=== PATIENT | male | born 1950 | race Caucasian/White ===

== ENCOUNTER → 2017-02-16 | Day surgery (SDC) | payer OTHER ==
[2017-02-06 10:59] VITALS: Ht 180.3 cm; Wt 86.5 kg
[~2017-02-16] VITALS: Ht 180.3 cm; Wt 86.5 kg
[~2017-02-16] MED LIST: ACETAMINOPHEN 325 MG TAB PO PRN; ACT30 PO; ASPI81TA28 PO; ATROPINE SULFATE 0.1 MG/ML 5ML SYR IV PRN; ATROPINE SULFATE 1% OP SOLN 2 ML BTL ONE; AcetylCHOLine CHL OP SOL 1:100 2 ML BTL ONE; BRIMONIDINE TART 0.2% OP SOLN PER DROP CHARGE ONE; BSS 500ML IRRIG ONE; BSS FLUSH ONE; CARB50TA3 PO; ENDOCOAT 0.85ML SYRINGE INT OCU ONE; EpHEDrine SULFATE INJ 50 MG/ML AMP IV PRN; EpINEphrine INJ 1MG/ML AMP 1 MG/ML AMP ONE; FENTANYL CITRATE INJ 50 MCG/1 ML 2 ML VIAL ONE; FLUO0.1S2 OPR; GLUC10007 PO; HEALON 10MG/ML 0.85 ML SYR INSTIL ONE; INSU1.2I SQ; LACTATED RINGER'S 1000ML 500 ML IV SCH; LIDOCAINE 3.5% OPH GEL PER APPLICATION CHARGE ONE; LIDOCAINE 3.5% OPH GEL PER APPLICATION CHARGE OPL SCH; LIDOCAINE 4% OP SOLN DROP CHARGE ONE; LIDOCAINE 4% OP SOLN DROP CHARGE OPL SCH; LIDOCAINE HCL 1% MPF 2 ML VIAL ONE; LISI-725 PO; MIDAZOLAM HCL 1 MG/ML 2ML VIAL ONE; MOXIFLOXACIN OPH SOLN PER DROP CHARGE ONE; POVIDONE-IODINE OP SOLN 30 ML BTL ONE; PRLSR20 PO; PROPARACAINE 0.5% OP SOLN PER DROP CHARGE OPL SCH; SIMV40TA2 PO; SITA50TA5 PO; TETRACAINE HCL (OPHTH) 60 DROPS/4 ML BTL OP ONE; TOBRAMYCIN/DEXAMETHASONE OPH OINT PER APPLN CHARGE ONE
[2017-02-16] MEDS: MOXIFLOXACIN OPH SOLN PER DROP CHARGE OPL SCH ×3 (10:53→11:13)
--- NOTE | 2017-02-16 11:10 | History & Physical Bridge - SC ---
H&P Re-Evaluation Bridge Note: I have examined the patient, reviewed the History & Physical and in the interval since the performance of the History & Physical I have noted the following changes of clinical significance: No changes noted
[2017-02-16 13:00] VITALS: TEMP 36.5
--- NOTE | 2017-02-16 13:02 | Discharge Instructions-SurgCtr ---
Discharge Instructions Date of Service Feb 16, 2017. 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 meds - did not take any insulin this a.m.. Activity Recommendations Activity Limitations: per Instructions/Follow-up section Lifting Limitations: none Anesthesia . Post Anesthesia Instructions: If you have had General Anesthesia or IV Sedation: * Do not drive today. * Resume driving when surgeon permits. * Do not make important decisions or sign legal documents today. * Call surgeon for: 1. Temperature elevations greater than 101 degrees F. 2. Uncontrollable pain. 3. Excessive bleeding. 4. Persistent nausea and vomiting. 5. Medication intolerance (nausea, vomiting or rash). * For nausea and vomiting use only clear liquids such as: tea, soda, bouillon until nausea subsides, then gradually increase diet as tolerated. * If you have any concerns or questions, call your surgeon's office. If physician is unavailable and it is an emergency, call 911 or go to the nearest emergency room. . Instructions / Follow-Up Instructions / Follow-Up ACTIVITY RECOMMENDATIONS: * Bedrest (eyes to the sheila) MEDICATIONS: Resume previous medications unless instructed otherwise by your surgeon. Eye drops (today and tomorrow): Cipro - one drop in operative eye every 2 hours while awake Prednisolone 1% - one drop in operative eye every 2 hours while awake SPECIAL CARE INSTRUCTIONS: * If any problems or concerns, please call Dr. Fox's office at . * Keep plastic shield taped over eye to sleep at night. * Keep plastic shield taped over eye except to administer eye drops. * Keep plastic shield on until office visit the following day. FOLLOW UP VISIT: Follow-up with Dr. Fox in the [place] office as scheduled. If not already scheduled, please call the office at . Diet Recommendations Home Diet: resume previous diet Procedures Procedures Performed: Left Eye Descements Stripping Automated Endothelial Keratoplasty Pending Studies Studies pending at discharge: yes List of pending studies: corneal donor rim culture Medical Emergencies . Who to Call and When: Medical Emergencies: If at any time you feel your situation is an emergency, please call 911 immediately. . Non-Emergent Contact Non-Emergency issues call your: Finished Cloth Examiner . . "Provider Documentation" section prepared by Kingston Fox. .
--- NOTE | 2017-02-16 13:11 | [facility] Operative Report ---
Operative Report Operative Date Feb 16, 2017. Pre-Operative Diagnosis Left Eye Fuchs Dystrophy and Corneal Edema Post-Operative Diagnosis Same Procedure(s) Performed Left Eye Descements Stripping Automated Endothelial Keratoplasty Surgeon Dr. Fox Tank Assembler Surgeon(s) None Estimated Blood Loss 0 Findings fuchs dystrophy/ corneal edema left eye Fluids (cc crystalloids) see anesthesia record Specimens 1. C&S Corneal Donor Rim Drains none Anesthesia local with sedation Complication(s) None Disposition Recovery Room / PACU Implants DSAEK Graft Indications decreased vision left eye Description of Procedure After informed consent was obtained in the holding area attention was first turned to the donor cornea. It was trephinated with an 8.5mm Johanne trephine by myself. The patient was then wheeled back to the operating room where cardiac monitoring leads and oxygen by nasal cannula was administered by Anesthesia. Gentle IV sedation was given, and the patient's left eye was prepped and draped in usual sterile fashion. A wire lid speculum was placed into the left eye and the operating microscope was swung into position. Using 0.12 forceps and a Supersharp blade a paracentesis port was made 3 o'clock hours away from the 3 o'clock position of the patient's left eye. 1% non-preserved Lidocaine was then injected into the anterior chamber for anesthesia. The previously used trephine was then inked and used to josé the anterior corneal surface. A 2.2 mm keratotome blade was then used to make a shelved clear corneal incision at the 3o'clock position of the left eye. Healon was injected into the anterior chamber and a reverse Sinsky hook was used to score Descemet's membrane within the marked area. The stripper was then used to remove the stripped Descemets'. The stromal utility tender carding was then used to roughen the peripheral stromal bed. The primary incision was then widened to 4.0m total. The irrigation and aspiration handpiece was then used to remove the Healon. The donor graft was then loaded into the Endoserter and the graft was injected into the anterior chamber using the Endoserter. The graft was unfolded underneath bss and air and a single 10- 0 nylon suture was placed through the primary incision. A complete air fill of the anterior was achieved and the cornea was covered in Healon for 15 minutes. The interface was then milked with a Lesley Lasik roller and another 15 minutes was allowed to elaps. A partial air-fluid exchange was done leaving behind a 50% air fill. Resure sealant was placed over the incisions. The wounds were hydrated and noted to be watertight. The wire lid speculum was removed from the eye. Vigamox, Atropine, and TobraDex ointment were placed on the eye and it was shielded. DISPOSITION: The patient tolerated the procedure well and was wheeled to the post anesthesia care unit in stable condition. I attest to the content of the Intraoperative Record and any orders documented therein. Any exceptions are noted below. I attest to the content of the Intraoperative Record and any orders documented therein. Any exceptions are noted below.
--- NOTE | 2017-02-16 13:39 | Anesthesia Progress Nt - [facility] ---
Anesthesia Post Op Note Date & Time Feb 16, 2017 at 13:39 Vital Signs Pain Intensity: 0 Vital Signs Past 12 Hours Date Time Temp Pulse Resp B/P (MAP) Pulse Ox O2 Delivery O2 Flow Rate FiO2 02/16/17 13:00 36.5 75 16 144/79 (100) 97 Room Air 02/16/17 10:33 36.7 70 16 155/86 (109) 98 Room Air Notes Mental Status: alert / awake / arousable, participated in evaluation Pt Amnestic to Procedure: Yes Nausea / Vomiting: adequately controlled Pain: adequately controlled Airway Patency, RR, SpO2: stable & adequate BP & HR: stable & adequate Hydration State: stable & adequate Anesthetic Complications: no major complications apparent
[2017-02-16 13:57] VITALS: BP 136/78; PULSE 76; O2SAT 95
== END | disposition home or self-care (01) ==
LOC: X.SURG 10:07
PROVIDERS: ATTEND Ophthalmology
DX: H18.51 Endothelial corneal dystrophy (principal); H18.20 Unspecified corneal edema; E11.9 Type 2 diabetes mellitus without complications; E78.00 Pure hypercholesterolemia, unspecified; Z79.82 Long term (current) use of aspirin; Z79.899 Other long term (current) drug therapy

== ENCOUNTER → 2017-02-23 | Day surgery (SDC) | payer OTHER ==
[2017-02-20 09:22] VITALS: Ht 180.3 cm; Wt 86.5 kg
[~2017-02-23] VITALS: Ht 180.3 cm; Wt 86.5 kg
[~2017-02-23] MED LIST changes: -AcetylCHOLine CHL OP SOL 1:100 2 ML BTL ONE; -BRIMONIDINE TART 0.2% OP SOLN PER DROP CHARGE ONE; -BSS 500ML IRRIG ONE; -BSS FLUSH ONE; -CARB50TA3 PO; -ENDOCOAT 0.85ML SYRINGE INT OCU ONE; -FENTANYL CITRATE INJ 50 MCG/1 ML 2 ML VIAL ONE; -HEALON 10MG/ML 0.85 ML SYR INSTIL ONE; -LIDOCAINE 3.5% OPH GEL PER APPLICATION CHARGE ONE; +ONDANSETRON INJ 2 MG/ML 2 ML VIAL IV PRN; -TETRACAINE HCL (OPHTH) 60 DROPS/4 ML BTL OP ONE
[2017-02-23] MEDS: BRIMONIDINE TART 0.2% OP SOLN PER DROP CHARGE ONE ×2 (07:21→09:50)
[2017-02-23] MEDS: MOXIFLOXACIN OPH SOLN PER DROP CHARGE OPL SCH ×3 (08:22→08:42)
[2017-02-23 09:53] VITALS: TEMP 36.2
--- NOTE | 2017-02-23 09:53 | [facility] Post Operative Brief Note ---
Immediate Operative Summary Operative Date Feb 23, 2017. Pre-Operative Diagnosis Left Eye Detached Cornea Graft Post-Operative Diagnosis Same Procedure(s) Performed Left Eye Refloatation Of Cornea Graft Surgeon Dr. Fox Bolt Maker Surgeon(s) None Estimated Blood Loss None Findings detached DSAEK graft left eye Fluids (cc crystalloids) see anesthesia record Specimens None Drains none Anesthesia local with sedation Complication(s) None Disposition Recovery Room / PACU
--- NOTE | 2017-02-23 09:53 | Discharge Instructions-SurgCtr ---
Discharge Instructions Date of Service Feb 23, 2017. Visit Reason for Visit: Left Eye Detached Cornea Graft Discharge Discharge Diagnosis / Problem: detached DSAEK Graft left eye Discharge Goals Goal(s): Improve function Activity Recommendations Activity Limitations: per Instructions/Follow-up section Lifting Limitations: none Anesthesia . Post Anesthesia Instructions: If you have had General Anesthesia or IV Sedation: * Do not drive today. * Resume driving when surgeon permits. * Do not make important decisions or sign legal documents today. * Call surgeon for: 1. Temperature elevations greater than 101 degrees F. 2. Uncontrollable pain. 3. Excessive bleeding. 4. Persistent nausea and vomiting. 5. Medication intolerance (nausea, vomiting or rash). * For nausea and vomiting use only clear liquids such as: tea, soda, bouillon until nausea subsides, then gradually increase diet as tolerated. * If you have any concerns or questions, call your surgeon's office. If physician is unavailable and it is an emergency, call 911 or go to the nearest emergency room. . Instructions / Follow-Up Instructions / Follow-Up ACTIVITY RECOMMENDATIONS: * Bedrest, eyes to the sheila MEDICATIONS: Resume previous medications unless instructed otherwise by your surgeon. Eye drops (today and tomorrow): Cipro - one drop operative eye 4 times daily Prednisolone 1% - one drop operative eye 4 times daily SPECIAL CARE INSTRUCTIONS: * If any problems or concerns, please call Dr. Fox's office at . * Keep plastic shield taped over eye to sleep at night. * Keep plastic shield taped over eye except to administer eye drops. * Keep plastic shield on until office visit the following day. FOLLOW UP VISIT: Follow-up with Dr. Fox in the [place] office as scheduled. If not already scheduled, please call the office at . Diet Recommendations Home Diet: resume previous diet Procedures Procedures Performed: Left Eye Refloatation Of Cornea Graft Pending Studies Studies pending at discharge: no Medical Emergencies . Who to Call and When: Medical Emergencies: If at any time you feel your situation is an emergency, please call 911 immediately. . Non-Emergent Contact Non-Emergency issues call your: Supervisor Sample . . "Provider Documentation" section prepared by Kingston Fox. .
--- NOTE | 2017-02-23 09:59 | Anesthesia Progress Nt - [facility] ---
Anesthesia Post Op Note Date & Time Feb 23, 2017 at 09:59 Vital Signs Pain Intensity: 4 Vital Signs Past 12 Hours Date Time Temp Pulse Resp B/P (MAP) Pulse Ox O2 Delivery O2 Flow Rate FiO2 02/23/17 09:53 36.2 72 18 135/75 (95) 97 Room Air 02/23/17 08:04 36.7 67 16 132/81 (98) 96 Room Air Notes Mental Status: alert / awake / arousable, participated in evaluation Pt Amnestic to Procedure: Yes Nausea / Vomiting: adequately controlled Pain: adequately controlled Airway Patency, RR, SpO2: stable & adequate BP & HR: stable & adequate Hydration State: stable & adequate Anesthetic Complications: no major complications apparent
[2017-02-23 11:05] VITALS: BP 147/81; PULSE 66; O2SAT 94
--- NOTE | 2017-02-24 01:02 | OPERATIVE REPORT ---
DATE OF OPERATION: 02/23/2017 PREOPERATIVE DIAGNOSIS: Detached DSAEK graft, left eye. POSTOPERATIVE DIAGNOSIS: Same. PROCEDURE PERFORMED: Refloat of DSAEK graft, left eye. COMPLICATIONS: None. ESTIMATED BLOOD LOSS: None. ANESTHESIA: Local with sedation. DESCRIPTION OF PROCEDURE: After informed consent was obtained in the holding area, the patient was wheeled back to the operating room where cardiac monitoring leads and oxygen by nasal cannula was administered by anesthesia. Gentle IV sedation was given, and the patient's left eye was prepped and draped in usual sterile fashion. A wire lid speculum was placed in the left eye and the operating microscope swung into position. Using the previously made paracentesis at the 5 o'clock position of the patient's left eye, lidocaine was injected into the anterior chamber for anesthesia. Air on a cannula was then used to inject air underneath the detached graft and refloat it to the posterior corneal surface. The graft was then positioned using reverse Sinskey hook. Air on a 30-gauge half-inch needle was then used to achieve a complete air fill of the left eye. This was held for 15 minutes after which time the interface was milked with a Lesley LASIK roller. Atropine drops were then placed on the eye. Another 10 minutes elapsed after which time a partial air-fluid exchange was done, leaving behind a 50% air fill. ReSure sealant was then placed over the paracentesis ports as well as the main incision. The wire lid speculum was removed from the eye. Vigamox and TobraDex ointment were placed on the eye and the eye was shielded. The patient tolerated the procedure well and was taken to recovery area in stable condition. I attest to the content of the Intraoperative Record and any orders documented therein. Any exception s are noted below.
== END | disposition home or self-care (01) ==
LOC: X.SURG 07:44
PROVIDERS: ATTEND Ophthalmology
DX: T85.328A Displacement of other ocular prosthetic devices, implants and grafts, initial encounter (principal); E11.9 Type 2 diabetes mellitus without complications; Z79.82 Long term (current) use of aspirin; E78.00 Pure hypercholesterolemia, unspecified; Z79.4 Long term (current) use of insulin; K21.9 Gastro-esophageal reflux disease without esophagitis; Y77.2 Prosthetic and other implants, materials and accessory ophthalmic devices associated with adverse incidents

== ENCOUNTER 2023-08-13 14:26 | Inpatient (IN) ==
[2023-08-13] MEDS ORDERED: SODIUM CHLORIDE 0.9% 500 ML IV ONE (14:53)
--- NOTE | 2023-08-13 15:05 | Emergency Department Note ---
Impression & Plan Atrial fibrillation ADMIT ED Provider Note HPI: History obtained from patient and family members at the bedside. The patient is a 73-year-old gentleman who over the past several days has been having issues with transient episodes of slurred speech and upper extremity weakness. Patient presents with several family members at the bedside. They state that the patient was complaining of some numbness in his extremities yesterday and intermittently was having slurred speech when they were trying to talk to him. Patient was assessed at the ER in [place], [place], and family states that following negative CT imaging the patient was ultimately discharged home. Patient's family states he again was having episodes of slurred speech today and therefore they brought him to the ER here for further evaluation. On arrival, the patient appears to be in no acute distress. He does not have any focal deficits. He states he had a mild headache earlier today but that is now resolved. Patient denies any chest pain or shortness of breath. He does not have any focal deficits on my evaluation. ROS: - Per HPI Differential Diagnosis: Acute ischemic stroke, hypoglycemic event, critical electrolyte abnormalities, acute kidney injury, sepsis, encephalopathy, amongst other potential pathologies. *Outpatient medications and allergy history reviewed. PE: General: Alert HEENT: Normocephalic, trachea midline Eyes: Extraocular eye movement is intact, no scleral erythema Pulmonary: Clear to auscultation bilaterally, no wheezing Cardio: Regular rate and irregular rhythm GI: Abdomen is soft to palpation : No suprapubic tenderness MSK: No evidence of trauma or malformation of the extremities, no edema Skin: No evidence of rash Neuro: Alert, no focal deficits Psychiatric: Cooperative INDEPENDENT INTERPRETATIONS: hall monitor: (As interpreted by myself): - An order was placed for continuous cardiac monitoring - Patient was noted to be in atrial fibrillation with a rate of 68 EKG: (As interpreted by myself): Rate: 71 Rhythm: Atrial fibrillation Intervals: Within normal limits ST changes: No ST elevation Time: 1451 Interventions provided in ED: -Normal saline bolus, IV magnesium Medical Decision Making: IV was established and lab work obtained, patient was placed on residential monitor. Lab work shows no leukocytosis, hemoglobin is 12.2, platelet count is within normal limits. CMP shows mild hyponatremia 135, creatinine is slightly elevated at 1.45 with unknown baseline, glucose is 204, troponin is negative x 1. TSH is within normal limits. Magnesium is low at 1.2. Viral panel testing was obtained and is negative. Given that the patient had recent negative CT imaging done just yesterday at an outside hospital, MRI was obtained today of the brain that does not show any evidence of acute ischemic stroke. Patient's EKG does show evidence of a new onset atrial fibrillation of which the patient states he has no known history. Family also states this. Given the patient's recent symptoms in the setting of new onset atrial fibrillation, I feel he would benefit from admission and cardiology consultation. Patient will also likely need to start anticoagulation. Patient and his family at the bedside are in agreement for admission, case was discussed with the on-call hospitalist, Dr. Bryant, and the patient was placed for admission in stable condition Consultants/Discussions held with other healthcare providers: -Hospitalist, Dr. Bryant Disposition discussion held by myself with: -Patient and at bedside Diagnosis: 1. Atrial fibrillation, acute, new onset 2. Paresthesias, acute, nonspecific 3. Speech abnormality, acute, nonspecific 4. Hypomagnesemia 5. Elevated creatinine, acute 6. Hyponatremia, acute Disposition: Admission Genaro Spears DO Emergency Medicine Past Med/Surg History Social History Smoking Status: Former smoker Tobacco Type: Cigarettes Smoking End Date: 1974; Hx Alcohol Use: Yes Alcohol type: beer Hx Substance Use: No Preferred Language: Armenian Communication Ability: Effective Gravel Roofer Required: No Current Living Situation: Spouse Feels Safe at Home: Yes Safety Concerns: Feels Safe At This Time Assistive Devices: None Allergies Allergies Allergy/AdvReac Type Severity Reaction Status Date / Time No Known Allergies Allergy Unverified 08/13/23 16:02 Home Meds Home Medications Medication Instructions Recorded Confirmed aspirin 81 mg tablet,delayed 81 mg PO QAM 08/13/23 08/13/23 release atorvastatin 40 mg tablet 40 mg PO DAILY 08/13/23 08/13/23 azelastine 137 mcg-fluticasone 50 1 spray intranasal DAILY 08/13/23 08/13/23 mcg/spray nasal spray cholecalciferol (vitamin D3) 25 25 mcg PO DAILY 08/13/23 08/13/23 mcg (1,000 unit) tablet (Vitamin D3) ferrous sulfate 325 mg (65 mg 325 mg PO DAILY 08/13/23 08/13/23 iron) tablet (iron) insulin glargine U-300 conc 300 10 unit subcut QPM 08/13/23 08/13/23 unit/mL (1.5 mL) subcutaneous pen (Poli Zuletaar U-300 Insulin) lisinopril 20 mg tablet 20 mg PO QAM 08/13/23 08/13/23 metoprolol tartrate 25 mg tablet 25 mg PO BID 08/13/23 08/13/23 peg 400-propylene glycol (PF) 0.4 1 drp ophthalmic (eye) BID PRN as 08/13/23 08/13/23 %-0.3 % eye drops in a dropperette directed (Systane (PF)) prednisolone acetate 1 % eye 1 drp OPB DAILY 08/13/23 08/13/23 drops,suspension sitagliptin phosphate 50 1 tab PO BID 08/13/23 08/13/23 mg-metformin 1,000 mg tablet (Janumet) Results & Data (ED) Vital Signs Vital Signs - 24 hr 08/13/23 14:55 08/13/23 14:55 08/13/23 15:47 Temperature 36.6 C Temperature Source Oral Pulse Rate 75 Pulse Rate [Apical] 70 Respiratory Rate 20 16 Respiratory Effort / Characteristics Non-Labored Non-Labored Respiratory Depth Normal Normal Respiratory Pattern Regular Blood Pressure 134/70 Blood Pressure [Right Arm] 144/79 H Blood Pressure Mean 91 Blood Pressure Mean [Right Arm] 100 Pulse Oximetry 97 97 Oxygen Delivery Method Room Air Room Air Sepsis Recent Fever Within 48 Hours No Sepsis New/Unexplained Change in Mental Status No Sepsis Action Taken by Nursing No Action Required 08/13/23 17:47 08/13/23 17:48 Temperature Temperature Source Pulse Rate 57 L Pulse Rate [Apical] 74 Respiratory Rate 16 Respiratory Effort / Characteristics Respiratory Depth Respiratory Pattern Blood Pressure Blood Pressure [Right Arm] 135/73 Blood Pressure Mean Blood Pressure Mean [Right Arm] 93 Pulse Oximetry 97 Oxygen Delivery Method Room Air Sepsis Recent Fever Within 48 Hours Sepsis New/Unexplained Change in Mental Status Sepsis Action Taken by Nursing Laboratory Data 08/13/23 14:49 08/13/23 14:49 Lab Results 08/13/23 08/13/23 Range/Units 14:49 15:10 WBC 6.50 (4.8-10.8) K/ul RBC 3.97 L (4.70-6.10) M/uL Hgb 12.2 L (14.0-18.0) g/dl Hct 36.9 L (42.0-52.0) % MCV 92.9 (80.0-100.0) fL MCH 30.7 (25.0-34.0) pg MCHC 33.1 (32.0-36.0) g/dL RDW Std Deviation 43.0 (36.4-46.3) fL RDW Coeff of Nelli 12.6 (11.5-14.5) % Plt Count 180 (130-400) K/uL MPV 10.1 (9.4-12.4) fL Immature Gran % (Auto) 0.3 % Neut % (Auto) 67.5 % Lymph % (Auto) 21.7 % [place] % (Auto) 9.4 % Eos % (Auto) 0.3 % Baso % (Auto) 0.8 % Neut # (Auto) 4.39 (1.40-6.50) K/uL Lymph # (Auto) 1.41 (1.20-3.40) K/uL [place] # (Auto) 0.61 H (0.11-0.59) K/uL Eos # (Auto) 0.02 (0.00-0.50) K/uL Baso # (Auto) 0.05 (0.00-0.20) K/uL Immature Gran # (Auto) 0.02 (0.01-0.20) K/uL PT 11.8 (9.0-12.0) Seconds INR 1.1 (0.9-1.1) APTT 25 (21-31) Seconds PTT Ratio 0.9 Sodium 135 L (136-145) mmol/L Potassium 4.1 (3.5-5.1) mmol/L Chloride 103 (98-107) mmol/L Carbon Dioxide 24 (21-32) mmol/L Anion Gap 8 (3-11) BUN 21 (6-23) mg/dl Creatinine 1.45 H (0.6-1.4) mg/dl Est Cr Clr Drug Dosing 45.3 ml/min Est GFR ( Amer) 54.2 ml/min Est GFR (Non-Af Amer) 46.8 ml/min BUN/Creatinine Ratio 14.5 (10-20) Glucose 204 H (70-99(Fasting)) mg/dl Calcium 9.0 (8.6-10.3) mg/dl Magnesium 1.2 L (1.7-2.4) mg/dl Total Bilirubin 0.6 (0.2-1.0) mg/dl AST 23 (13-39) U/L ALT 9 (7-52) U/L Alkaline Phosphatase 29 L (34-104) U/L Troponin I High Sens 16.8 (0-20) pg/ml Total Protein 6.3 (6.0-8.3) gm/dl Albumin 3.9 (3.4-5.0) gm/dl Globulin 2.4 L (2.5-4.0) gm/dl Albumin/Globulin Ratio 1.6 (0.9-2) TSH 0.377 (0.300-4.500) uIu/ml Adenovirus (PCR) Not Detected (NotDetected) B. pertussis DNA (PCR) Not Detected (NotDetected) B.parapertussis DNA PCR Not Detected (NotDetected) C. pneumoniae DNA (PCR) Not Detected (NotDetected) Coronavirus OC43 (PCR) Not Detected (NotDetected) Coronavirus HKU1 (PCR) Not Detected (NotDetected) Coronavirus 229E (PCR) Not Detected (NotDetected) SARS-CoV-2 (PCR) Not Detected (NotDetected) Coronavirus NL63 (PCR) Not Detected (NotDetected) Human Metapneumovir PCR Not Detected (NotDetected) Influenza Type A (PCR) Not Detected (NotDetected) Influenza Type B (PCR) Not Detected (NotDetected) M. pneumoniae (PCR) Not Detected (NotDetected) Parainfluenza 1 (PCR) Not Detected (NotDetected) Parainfluenza 2 (PCR) Not Detected (NotDetected) Parainfluenza 3 (PCR) Not Detected (NotDetected) Parainfluenza 4 (PCR) Not Detected (NotDetected) RSV (PCR) Not Detected (NotDetected) Entero/Rhino (PCR) Not Detected (NotDetected) Administered Medications Atorvastatin Calcium (Atorvastatin 40 Mg Tab) 40 mg PO DAILY ERNESTO Stop: 09/12/23 19:34 Last Admin: 08/13/23 21:23 Dose: 40 mg Documented By: EVAN Metoprolol Tartrate (Metoprolol Tartrate 25 Mg Tab) 25 mg PO BID ERNESTO Stop: 09/12/23 20:59 Last Admin: 08/13/23 21:23 Dose: 25 mg Documented By: EVAN Discontinued Medications Sodium Chloride (Nss) 500 mls @ 999 mls/hr IV .Q31M ONE Stop: 08/13/23 15:23 Last Infusion: 08/13/23 15:35 Dose: Infused Documented By: Admin: 08/13/23 15:00 Dose: 999 mls/hr Documented By: JEROMY Imaging Data Radiologist's Impression: Brain MRI 08/13/23 15:03 MRI OF THE BRAIN WITHOUT CONTRAST CLINICAL HISTORY: Slurred speech. COMPARISON STUDY: None. TECHNIQUE: Utilizing a 1.5 Beata magnet and dedicated coil, multiplanar, multiecho imaging of the brain was performed without IV contrast. FINDINGS: There are no foci of restricted diffusion to suggest acute infarct. No acute intracranial hemorrhage, midline shift or mass effect is present. The ventricular system is unremarkable. Basal cisterns are patent. There are no extra-axial collections. Flow-voids for the major intracranial vessels are present. Moderate white matter T2 hyperintense foci suggest small vessel disease. No intracranial mass on unenhanced exam is evident. Calvarial signal is normal. Tiny air-fluid level within the left maxillary sinus is present. IMPRESSION: No acute intracranial findings. ACT 112: Negative or not required by law. Electronically signed by: Benny Juarez M.D. 08/13/2023 5:11 PM Discharge Plan Visit Data Chief Complaint: Stroke/CVA Symptoms Stated Complaint: Slurred speech, headache since yesterday ED Provider: Genaro Spears Discharge Problem: Atrial fibrillation Patient Disposition: Admitted As Inpatient Discharge Instructions Interventions: ED Discharge Assessment Last Done: 08/13/23 19:19 Discharge Problem: Atrial fibrillation Qualifiers: Atrial fibrillation type: unspecified Qualified Code(s): I48.91 - Unspecified atrial fibrillation
[2023-08-13 15:49] LABS: Basophils # (auto) 0.05 K/uL (0.00-0.20); Basophils % (auto) 0.8 %; Eosinophils # (auto) 0.02 K/uL (0.00-0.50); Eosinophils % (auto) 0.3 %; Hematocrit (blood only) 36.9 % (42.0-52.0); Hemoglobin 12.2 g/dl (14.0-18.0); Immature Granulocytes # (auto) 0.02 K/uL (0.01-0.20); Immature Granulocytes % (auto) 0.3 %; Lymphocytes # (auto) 1.41 K/uL (1.20-3.40); Lymphocytes % (auto) 21.7 %; Mean Corpuscular Hemoglobin 30.7 pg (25.0-34.0); Mean Corpuscular Hgb Conc 33.1 g/dL (32.0-36.0); Mean Corpuscular Volume 92.9 fL (80.0-100.0); Mean Platelet Volume 10.1 fL (9.4-12.4); Monocytes # (auto) 0.61 K/uL (0.11-0.59); Monocytes % (auto) 9.4 %; Neutrophils # (auto) 4.39 K/uL (1.40-6.50); Neutrophils % (auto) 67.5 %; Platelet Count 180 K/uL (130-400); RDW Coefficient of Variation 12.6 % (11.5-14.5); Red Blood Count 3.97 M/uL (4.70-6.10)
[2023-08-13 15:59] LABS: Albumin Globulin Ratio 1.6 (0.9-2); Albumin Level 3.9 gm/dl (3.4-5.0); BUN Creatinine Ratio 14.5 (10-20); Bilirubin,Total 0.6 mg/dl (0.2-1.0); Creatinine Clr Calc Pharmacy 45.3 ml/min; Est GFR (African American) 54.2 ml/min; Est GFR (Non-African American) 46.8 ml/min; Globulin 2.4 gm/dl (2.5-4.0); Magnesium 1.2 mg/dl (1.7-2.4); Potassium 4.1 mmol/L (3.5-5.1); Total Protein 6.3 gm/dl (6.0-8.3)
[2023-08-13 16:04] LABS: Troponin I High Sensitivity 16.8 pg/ml (0-20)
[2023-08-13 16:13] LABS: INR 1.1 (0.9-1.1); Partial Thromboplastin Ratio 0.9; Partial Thromboplastin Time 25 Seconds (21-31); Prothrombin Time 11.8 Seconds (9.0-12.0)
[2023-08-13 16:14] LABS: Adenovirus PCR Not Detected (NotDetected); Bordetella parapertussis PCR Not Detected (NotDetected); Bordetella pertussis PCR Not Detected (NotDetected); Chlamydia pneumoniae PCR Not Detected (NotDetected); Coronavirus 229E PCR Not Detected (NotDetected); Coronavirus CoV-2 (COVID19)PCR Not Detected (NotDetected); Coronavirus HKU1 PCR Not Detected (NotDetected); Coronavirus NL63 PCR Not Detected (NotDetected); Coronavirus OC43PCR Not Detected (NotDetected); Human Metapneumovirus PCR Not Detected (NotDetected); Influenza A PCR Not Detected (NotDetected); Influenza B PCR Not Detected (NotDetected); Mycoplasma pneumoniae PCR Not Detected (NotDetected); Parainfluenza Virus 1 PCR Not Detected (NotDetected); Parainfluenza Virus 2 PCR Not Detected (NotDetected); Parainfluenza Virus 3 PCR Not Detected (NotDetected); Parainfluenza Virus 4 PCR Not Detected (NotDetected); Respiratory Syncytial VirusPCR Not Detected (NotDetected); Rhinovirus/Enterovirus PCR Not Detected (NotDetected)
--- NOTE | 2023-08-13 16:33 | Electrocardiogram Report ---
Test Reason : Blood Pressure : / mmHG Vent. Rate : 071 BPM Atrial Rate : 000 BPM P-R Int : 000 ms QRS Dur : 072 ms QT Int : 396 ms P-R-T Axes : 000 019 032 degrees QTc Int : 430 ms Sinus rhythm with frequent Premature atrial complexes Abnormal ECG No previous ECGs available Reconfirmed by Tye Rodriguez ([id number]) on 08/14/2023 2:48:27 PM Referred By: Confirmed By:Tye Rodrgiuez
--- NOTE | 2023-08-13 17:14 | Magnetic Resonance Report ---
MRI OF THE BRAIN WITHOUT CONTRAST CLINICAL HISTORY: Slurred speech. COMPARISON STUDY: None. TECHNIQUE: Utilizing a 1.5 Beata magnet and dedicated coil, multiplanar, multiecho imaging of the bra in was performed without IV contrast. FINDINGS: There are no foci of restricted diffusion to suggest acute infarct. No acute intracranial h emorrhage, midline shift or mass effect is present. The ventricular system is unremarkable. Basal cis terns are patent. There are no extra-axial collections. Flow-voids for the major intracranial vessels are present. Moderate white matter T2 hyperintense foci suggest small vessel disease. No intracrania l mass on unenhanced exam is evident. Calvarial signal is normal. Tiny air-fluid level within the lef t maxillary sinus is present. IMPRESSION: No acute intracranial findings. ACT 112: Negative or not required by law. Electronically signed by: Benny Juarez M.D. 08/13/2023 5:11 PM
[2023-08-13 18:16] LABS: Thyroid Stimulating Hormone 0.377 uIu/ml (0.300-4.500)
--- NOTE | 2023-08-13 18:23 | History & Physical Report ---
Date of Service August 13, 2023 Assessment & Plan (1) TIA (transient ischemic attack): Plan: Patient presents to the ED with episode of right arm weakness and word finding difficulty CT head done in [facility] did not show acute finding MRI brainno acute findings, stroke ruled out. EKGreported to have atrial fibrillation. Reviewed with Dr. Flores from cardiology; consistent with sinus rhythm with PACs. Will obtain CTA head and neck to complete the stroke workup. Continue telemonitoring. If library monitor shows concern of atrial fibrillation overnight; consult cardiology. Patient will need extended cardiac monitoring as outpatient after follow-up with primary care doctor. Obtain echocardiogram Neurology consult Continue on aspirin and Lipitor Hypertensioncontinue on lisinopril, metoprolol Type 2 diabetes mellitusplaced on glargine, ACHS. Will add NovoLog if blood glucose is elevated. Hyperlipidemiacontinue on Lipitor. Discussed with patient's family at bedside. Answered questions/queries. Time spent evaluating patient, direct bedside care, chart review, placing orders, interpretation of diagnostic studies, discussion with consultants, patient, and family members, as well as other required patient management activities is 75-minutes Please note the above document was generated using voice recognition software. It may contain grammatical, syntax or spelling errors. Any formal questions or concerns about the content, text or information contained within the body of this dictation should be directly addressed to the provider for clarification History of Present Illness Chief Complaint: Concern for TIA, atrial fibrillation Primary Care Provider: Ang Pickard History obtained from interview with the patient and chart review. Past medical history of CAD status post CABG (1 year back), hypertension, type 2 diabetes mellitus. Patient reports that he had weakness on his right arm yesterday afternoon which lasted about 10 minutes and subsided on its own. His family also noticed that he has some word finding difficulties since y as well. Patient reports headache. He denies any numbness, weakness of any body part today. He denies dizziness, visual changes. He was evaluated in the emergency department in [facility] yesterday; found to have negative CT head and was discharged home. On presentation to the ED, patient was normotensive, bradycardic and saturating well on room air. Brain MRI was done to rule out a stroke; no acute findings. EKG was done; was interpreted to have atrial fibrillation. It was reviewed with on-call doweling machine operator (Dr. Flores); consistent with sinus rhythm with PAC. Telemetry also confirms sinus rhythm with PAC. Patient is admitted to the hospital for further workup. Allergies Allergy/AdvReac Type Severity Reaction Status Date / Time No Known Allergies Allergy Unverified 08/13/23 16:02 Home Medications Medication Instructions Recorded Confirmed Type aspirin 81 mg tablet,delayed 81 mg PO QAM 08/13/23 08/13/23 History release atorvastatin 40 mg tablet 40 mg PO DAILY 08/13/23 08/13/23 History azelastine 137 mcg-fluticasone 50 1 spray intranasal DAILY 08/13/23 08/13/23 History mcg/spray nasal spray cholecalciferol (vitamin D3) 25 25 mcg PO DAILY 08/13/23 08/13/23 History mcg (1,000 unit) tablet (Vitamin D3) ferrous sulfate 325 mg (65 mg 325 mg PO DAILY 08/13/23 08/13/23 History iron) tablet (iron) insulin glargine U-300 conc 300 10 unit subcut QPM 08/13/23 08/13/23 History unit/mL (1.5 mL) subcutaneous pen (Toujeo SoloStar U-300 Insulin) lisinopril 20 mg tablet 20 mg PO QAM 08/13/23 08/13/23 History metoprolol tartrate 25 mg tablet 25 mg PO BID 08/13/23 08/13/23 History peg 400-propylene glycol (PF) 0.4 1 drp ophthalmic (eye) BID PRN as 08/13/23 08/13/23 History %-0.3 % eye drops in a dropperette directed (Systane (PF)) prednisolone acetate 1 % eye 1 drp OPB DAILY 08/13/23 08/13/23 History drops,suspension sitagliptin phosphate 50 1 tab PO BID 08/13/23 08/13/23 History mg-metformin 1,000 mg tablet (Janumet) Past Med/Surg History Social History Smoking Status: Former smoker Feels Safe at Home: Yes Review of Systems Review of Systems: All systems reviewed & are unremarkable except as noted in Subjective Physical Exam Physical Exam: Constitutional: WD/WN, vitals as above, NAD, sitting up in bed, pleasant, conversing easily Respiratory: normal respiratory effort, lungs clear to auscultation, no wheeze, rales, rhonchi. Normal insp/exp effort, no accessory muscle use Cardiovascular: RRR, no murmur, no edema Vessels: no JVD or carotid bruit Chest: normal inspection of chest Abdomen: normal bowel sounds, soft, nontender, no hepatosplenomegaly Musculoskeletal: no cyanosis or clubbing, extremities motor strength 5/5 Skin: no rashes, warm and dry normal turgor Neurologic: PERRL, EOMI, accommodation nl, no face palsy, no dysarthria CN's II- XI intact bilaterally and moves all extremities Psychiatric: A+Ox3, euthymic affect Results & Data Results & Data Vital Signs (Past 12 Hours) Vital Signs Temp Pulse Pulse Resp BP BP Pulse Ox 08/13/23 17:48 57 L 08/13/23 17:47 74 16 135/73 97 08/13/23 15:47 70 16 144/79 H 97 08/13/23 14:55 08/13/23 14:55 36.6 C 75 20 134/70 97 O2 Del Method 08/13/23 17:48 08/13/23 17:47 Room Air 08/13/23 15:47 08/13/23 14:55 Room Air 08/13/23 14:55 Room Air
[2023-08-13] MEDS ORDERED: ALUMINUM/MAGNESIUM SUSP 30 ML UDC PO PRN (19:35)
[2023-08-13] MEDS ORDERED: CARBOHYDRATES FOR HYPOGLYCEMIA PO PRN (19:35)
[2023-08-13] MEDS ORDERED: GLUCOSE 10 TAB/TUBE PO PRN (19:35)
[2023-08-13] MEDS ORDERED: NITROGLYCERIN SL 0.4 MG/TAB TAB SL PRN (19:35)
[2023-08-13] MEDS ORDERED: GLUCAGON FOR INJ 1 MG VIAL SQ PRN (19:35)
[2023-08-13] MEDS ORDERED: PHARMACY GLYCEMIC MGMT CONSULT PRN (19:35)
[2023-08-13] MEDS ORDERED: MAGNESIUM HYDROXIDE SUSP 30 ML UDC PO PRN (19:35)
[2023-08-13] MEDS ORDERED: GLUCOSE 40% GEL 15 GM TUBE PO PRN (19:35)
[2023-08-13] MEDS ORDERED: ARTIFICIAL TEARS OP PRN (19:35)
[2023-08-13] MEDS ORDERED: DEXTROSE 50% 50 ML SYRINGE IV PRN (19:35)
[2023-08-13] MEDS: METOPROLOL TARTRATE 25 MG TAB PO SCH (21:23)
[2023-08-13] MEDS: ATORVASTATIN 40 MG TAB PO SCH (21:23)
[2023-08-13] MEDS: LANTUS PER UNIT CHARGE SQ SCH (21:35)
[2023-08-13] MEDS: INSULIN ASPART PER UNIT CHARGE SC SCH (21:36)
[2023-08-13] MEDS ORDERED: OPTIRAY 320 125ml IV ONE (21:51)
[2023-08-13] MEDS: MAGNESIUM SULFATE / D5W 1 GM/100 ML BAG IV SCH ×2 (22:05→22:40)
--- NOTE | 2023-08-13 22:13 | CT Scan Report ---
Exam(s): CTA HEAD With Contrast IV Amt: 115 ml opti 320 EXAM: CT Angiography Head With Intravenous Contrast CLINICAL HISTORY: Reason for exam: Concern for TIA. TECHNIQUE: Axial computed tomographic angiography images of the head with intravenous contrast. CTDI is 20.76 mGy and DLP is 464.47 mGy-cm. Automated exposure control was utilized for the study. A dose lowering technique was utilized adhering to the principles of ALARA. MIP reconstructed images were created and reviewed. CONTRAST: Patient received 115 ml opti 320 of IV contrast COMPARISON: No relevant prior studies available. FINDINGS: Right internal carotid artery: No acute findings. Intracranial segment is patent with no significant stenosis. No aneurysm. Right anterior cerebral artery: Unremarkable. No occlusion or significant stenosis. No aneurysm. Right middle cerebral artery: Unremarkable. No occlusion or significant stenosis. No aneurysm. Right posterior cerebral artery: Unremarkable. No occlusion or significant stenosis. No aneurysm. Right vertebral artery: Unremarkable as visualized. Left internal carotid artery: No acute findings. Intracranial segment is patent with no significant stenosis. No aneurysm. Left anterior cerebral artery: Unremarkable. No occlusion or significant stenosis. No aneurysm. Left middle cerebral artery: Unremarkable. No occlusion or significant stenosis. No aneurysm. Left posterior cerebral artery: Unremarkable. No occlusion or significant stenosis. No aneurysm. Left vertebral artery: Unremarkable as visualized. Basilar artery: Unremarkable. No occlusion or significant stenosis. No aneurysm. IMPRESSION: Normal head CTA. Electronically signed by: Ray Hawk MD 08/13/23 22:12 PM
--- NOTE | 2023-08-13 22:15 | CT Scan Report ---
Exam(s): CTA NECK With Contrast IV Amt: 115 ml opti 320 EXAM: CT Angiography Neck With Intravenous Contrast CLINICAL HISTORY: Reason for exam: Concern for TIA. TECHNIQUE: Routine carotid CT angiography protocol was performed with intravenous contrast. NASCET criteria using the distal ICAs for comparison were used for evaluation of stenoses. CTDI is 20.76 mGy and DLP is 464.47 mGy-cm. Automated exposure control was utilized for the study. A dose lowering technique was utilized adhering to the principles of ALARA. MIP reconstructed images were created and reviewed. CONTRAST: Patient received 115 ml opti 320 of IV contrast COMPARISON: None. FINDINGS: VASCULATURE: Right common carotid artery: Unremarkable. No occlusion or significant stenosis. No dissection. Right internal carotid artery: Mild [id number] atherosclerotic calcifications at the right carotid bulb. Right external carotid artery: Severe stenosis at the ostia of the right external carotid artery. Right vertebral artery: Unremarkable. No occlusion or significant stenosis. No dissection. Left common carotid artery: Unremarkable. No occlusion or significant stenosis. No dissection. Left internal carotid artery: Mild [id number]-ihcupfzd atherosclerotic calcifications at the left carotid bulb. Left external carotid artery: Moderate stenosis at the ostia of the left external carotid artery. Left vertebral artery: Unremarkable. No occlusion or significant stenosis. No dissection. NECK: Bones/joints: Unremarkable. No acute fracture. Soft tissues: Unremarkable. Lung apices: Clear. CAROTID STENOSIS REFERENCE USING NASCET CRITERIA: % ICA stenosis = (1 - narrowest ICA diameter/diameter of distal cervical ICA) x 100. Mild - <50% stenosis. Moderate - 50-69% stenosis. Severe - 70-94% stenosis. Near occlusion - 95-99% stenosis. Occluded - 100% stenosis. IMPRESSION: No acute findings in the arteries of the neck. Electronically signed by: Ray Hawk MD 08/13/23 22:14 PM
[2023-08-14] MEDS ORDERED: INSULIN ASPART PER UNIT CHARGE SC ONE (02:00)
[2023-08-14] MEDS ORDERED: ACETAMINOPHEN 325 MG TAB PO STA (05:30)
[2023-08-14] MEDS ORDERED: SODIUM CHLORIDE 0.9% 1,000 ML IV ONE (05:31)
[2023-08-14] MEDS: ACETAMINOPHEN 325 MG TAB PO PRN ×2 (05:35→13:30)
[2023-08-14 05:52] LABS: Basophils # (auto) 0.04 K/uL (0.00-0.20); Basophils % (auto) 0.8 %; Eosinophils # (auto) 0.11 K/uL (0.00-0.50); Eosinophils % (auto) 2.3 %; Hematocrit (blood only) 35.3 % (42.0-52.0); Hemoglobin 11.9 g/dl (14.0-18.0); Immature Granulocytes # (auto) 0.01 K/uL (0.01-0.20); Immature Granulocytes % (auto) 0.2 %; Lymphocytes # (auto) 1.64 K/uL (1.20-3.40); Lymphocytes % (auto) 34.3 %; Mean Corpuscular Hemoglobin 30.9 pg (25.0-34.0); Mean Corpuscular Hgb Conc 33.7 g/dL (32.0-36.0); Mean Corpuscular Volume 91.7 fL (80.0-100.0); Mean Platelet Volume 9.3 fL (9.4-12.4); Monocytes # (auto) 0.63 K/uL (0.11-0.59); Monocytes % (auto) 13.2 %; Neutrophils # (auto) 2.35 K/uL (1.40-6.50); Neutrophils % (auto) 49.2 %; Platelet Count 151 K/uL (130-400); RDW Coefficient of Variation 12.6 % (11.5-14.5); RDW Standard Deviation 42.4 fL (36.4-46.3); Red Blood Count 3.85 M/uL (4.70-6.10); White Blood Count 4.78 K/ul (4.8-10.8)
[2023-08-14 06:09] LABS: Calcium 8.9 mg/dl (8.6-10.3); Magnesium 1.7 mg/dl (1.7-2.4); Potassium 3.8 mmol/L (3.5-5.1)
[2023-08-14 06:14] LABS: Chol HDL Ratio 2.5 (0-5)
[2023-08-14 06:15] LABS: BUN Creatinine Ratio 15.8 (10-20); Creatinine Clr Calc Pharmacy 52.3 ml/min; Est GFR (African American) 72.5 ml/min; Est GFR (Non-African American) 62.6 ml/min
[2023-08-14] MEDS ORDERED: MAGNESIUM SULFATE / D5W 1 GM/100 ML BAG IV ONE ×2 (06:32→19:50)
[2023-08-14] MEDS ORDERED: hydrALAZINE HCL 20 MG/ML VIAL IV ONE (06:33)
[2023-08-14 07:02] LABS: Estimated Average Glucose 157 mg/dl; Hemoglobin A1C 7.1 % (4.5-5.6)
--- NOTE | 2023-08-14 07:05 | CT Scan Report ---
CT OF THE HEAD WITHOUT CONTRAST CLINICAL HISTORY: Headache. COMPARISON STUDY: MRI of the brain and CTA of the head August 13, 2023. CT DOSE: 625.8 mGy.cm TECHNIQUE: Helical axial images of the head were obtained without IV contrast. Automated exposure con trol was utilized for the study. A dose lowering technique was utilized adhering to the principles o f ALARA. FINDINGS: Minimal intravascular contrast is from recent contrast-enhanced CT. No acute intracranial h emorrhage, midline shift or mass effect is present. White matter hypodensity suggests small vessel di sease. The ventricular system is unremarkable. The basal cisterns are patent. No extra-axial collecti ons are present. There are no findings to suggest acute dural sinus thrombosis or acute territorial i nfarct. No significant calvarial abnormalities are present. Visualized portions of the sinuses and ma stoid air cells are clear. IMPRESSION: No acute intracranial findings. ACT 112: Negative or not required by law. Electronically signed by: Benny Juarez M.D. 08/14/2023 7:03 AM
--- NOTE | 2023-08-14 07:10 | Pharmacy Report ---
Pharmacy Glycemic Short Note 2 - Date of Service August 14, 2023 - Glycemic Short BSG Results (Last 24 hours): 08/13/23 08/13/23 08/14/23 14:49 20:57 01:36 Glucose 204 H POC Glucose 142 H 92 08/14/23 08/14/23 05:26 05:33 Glucose 112 H POC Glucose 127 H OUTPATIENT ANTIDIABETIC REGIMEN: * Toujeo 10 units Qpm, Janumet mg 1 tab bid ASSESSMENT: * 73 year old admitted with concerns for TIA. Type 2 diabetic - A1c 7.1%. Pharmacy consulted for glycemic management. Patient received total of 11 units of insulin yesterday, of which 8 units were basal insulin * Fasting BSG 127 mg/dL - plan to continue similar parameters today PLAN FOR INPATIENT GLYCEMIC CONTROL: * Hold outpatient oral diabetes medications * Basal insulin * Lantus 8 units hs * Bolus insulin * NovoLog per scale ACHS or Q6hrs while NPO * Goal Range: Low 110 mg/dL - High 140 mg/dL * Correction Factor: 30 mg/dL/unit * Nutritional / Prandial insulin per carb ratio of 1 unit per 10 grams CHO consumed
[2023-08-14 07:24] LABS: Appearance Urine Clear (Clear); Bilirubin Urine Negative (Negative); Blood Urine Negative (Negative); Color Urine Yellow; Glucose Urine UA Negative (Negative); Ketones Urine Trace (Negative); Leukocyte Esterase Urine Negative (Negative); Nitrite Urine Negative (Negative); Protein Urine Negative (Negative); Specific Gravity Urine > 1.045 (1.000-1.030); Urobilinogen Urine Negative (Negative)
--- NOTE | 2023-08-14 08:03 | Neurology Consultation ---
Date of Consultation August 14, 2023 Assessment & Plan (1) TIA (transient ischemic attack): Transient right sided weakness in a 73M with a PMH of HTN and prior TIA. His exam is at his baseline at this time and imaging has been unremarkable. I suspect this event is a TIA although it is unusual for the episodes to be stereotyped Plan -- Recommend anticoagulation if afib is captured -- DAPT for a total of 21 days and then stop ASA -- echo pending -- consider EEG outpatient given stereotyped symptoms Telehealth Consultation Telehealth Information Telehealth Information: I performed this visit using a real-time telehealth connection between my location and the patients location ([facility]). After connecting through interactive tele-video, patient was identified by name and date of and/or wristband check.Patient (or authorized healthcare appeals representative) was informed that this was a telemedicine visit and it was being conducted confidentially over secure lines. My office door was closed and no one else was present in the room with me.Patient (or authorized healthcare appeals representative) provided consent to proceed with the visit, expressed an understanding of privacy and security of the telemedicine visit, and gave permission to have a hospital appeals representative in the room in order to assist with the visit and to conduct portions of the visit, as needed. I informed the patient (or authorized healthcare appeals representative) that I reviewed their record and presented the opportunity for them to ask any questions regarding the visit today. The patient agreed to participate. History of Present Illness Reason for Consultation: TIA Requesting Physician: Dr Simmons Attending Physician: Dacia Simmons MD History of Present Illness 73M with a PMH of HTN, HLD, DM and CABG who presents to the ED with chest pain and right sided weakness and slurred speech. He was sitting at home when symptoms started and for most of the day the right sided weakness came and went; when the weakness comes he can't move his arm at all. He has had these symptoms a couple of times before. No abnormal movements. He does report some chills and had a headache yesterday. He takes a baby ASA daily. Allergies Allergy/AdvReac Type Severity Reaction Status Date / Time No Known Allergies Allergy Unverified 08/13/23 16:02 Home Medications Medication Instructions Recorded Confirmed Type aspirin 81 mg tablet,delayed 81 mg PO QAM 08/13/23 08/13/23 History release atorvastatin 40 mg tablet 40 mg PO DAILY 08/13/23 08/13/23 History azelastine 137 mcg-fluticasone 50 1 spray intranasal DAILY 08/13/23 08/13/23 History mcg/spray nasal spray cholecalciferol (vitamin D3) 25 25 mcg PO DAILY 08/13/23 08/13/23 History mcg (1,000 unit) tablet (Vitamin D3) ferrous sulfate 325 mg (65 mg 325 mg PO DAILY 08/13/23 08/13/23 History iron) tablet (iron) insulin glargine U-300 conc 300 10 unit subcut QPM 08/13/23 08/13/23 History unit/mL (1.5 mL) subcutaneous pen (TouDigitalSciroccoo SoloStar U-300 Insulin) lisinopril 20 mg tablet 20 mg PO QAM 08/13/23 08/13/23 History metoprolol tartrate 25 mg tablet 25 mg PO BID 08/13/23 08/13/23 History peg 400-propylene glycol (PF) 0.4 1 drp ophthalmic (eye) BID PRN as 08/13/23 08/13/23 History %-0.3 % eye drops in a dropperette directed (Systane (PF)) prednisolone acetate 1 % eye 1 drp OPB DAILY 08/13/23 08/13/23 History drops,suspension sitagliptin phosphate 50 1 tab PO BID 08/13/23 08/13/23 History mg-metformin 1,000 mg tablet (Janumet) Patient History Social History Smoking Status: Former smoker Tobacco Type: Cigarettes Smoking End Date: 1974; Hx Alcohol Use: Yes Alcohol type: beer Hx Substance Use: No Preferred Language: Yoruba Communication Ability: Effective 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: No Current Living Situation: Spouse Feels Safe at Home: Yes Safety Concerns: Feels Safe At This Time Assistive Devices: None Physical Exam Exam: Constitutional: Appearance normally developed Head and face: normocephalic and atraumatic Eyes: no ptosis, no anisocoria, and no dysconjugate gaze Respiratory: normal effort Cardiovascular: regular rhythm and regular rate Abdomen: non distended Skin: no rashes, lesions, or ulcers noted Psychiatric: normal mood and normal affect NEUROLOGIC EXAMINATION: Mental Status:alert, normal language, and normal fund of knowledge, orientated to person and place only Cranial Nerves: CN 2 - no visual defect on confrontation and pupils round, equal, reactive to light CN 3, 4, 6 - extra-ocular movements intact and no nystagmus CN 5 - facial sensation intact CN 7 - no facial asymmetry CN 8 - intact hearing CN 9, 10 - BLU CN 11 - good shoulder shrug CN 12 - tongue midline MOTOR: Strength was at least antigravity throughout, Pronator drift was absent, and There were no abnormal movements SENSATION: intact GAIT: deferred COORDINATION: no ataxia with finger to nose testing and heel to horn testing REFLEXES: cannot assess over telemedicine Results & Data Vital Signs (Past 12 Hours) Vital Signs Temp Pulse Pulse Resp BP BP Pulse Ox 08/14/23 07:38 58 L 08/14/23 05:43 67 186/90 H 95 08/14/23 03:45 36.6 C 61 18 136/79 93 08/13/23 23:20 63 08/13/23 20:35 36.7 C 66 16 149/71 H 96 O2 Del Method 08/14/23 07:38 08/14/23 05:43 Room Air 08/14/23 03:45 Room Air 08/13/23 23:20 08/13/23 20:35 Room Air Laboratory Results Abnormal Lab Results 08/13/23 08/13/23 08/13/23 14:49 15:10 20:57 WBC 6.50 RBC 3.97 L Hgb 12.2 L Hct 36.9 L MCV 92.9 MCH 30.7 MCHC 33.1 RDW Std Deviation 43.0 RDW Coeff of Nelli 12.6 Plt Count 180 MPV 10.1 Immature Gran % (Auto) 0.3 Neut % (Auto) 67.5 Lymph % (Auto) 21.7 [place] % (Auto) 9.4 Eos % (Auto) 0.3 Baso % (Auto) 0.8 Neut # (Auto) 4.39 Lymph # (Auto) 1.41 [place] # (Auto) 0.61 H Eos # (Auto) 0.02 Baso # (Auto) 0.05 Immature Gran # (Auto) 0.02 PT 11.8 INR 1.1 APTT 25 PTT Ratio 0.9 Sodium 135 L Potassium 4.1 Chloride 103 Carbon Dioxide 24 Anion Gap 8 BUN 21 Creatinine 1.45 H Est Cr Clr Drug Dosing 45.3 Est GFR ( Amer) 54.2 Est GFR (Non-Af Amer) 46.8 BUN/Creatinine Ratio 14.5 Glucose 204 H POC Glucose 142 H Estimat Average Glucose Hemoglobin A1c Calcium 9.0 Magnesium 1.2 L Total Bilirubin 0.6 AST 23 ALT 9 Alkaline Phosphatase 29 L Ammonia Troponin I High Sens 16.8 Total Protein 6.3 Albumin 3.9 Globulin 2.4 L Albumin/Globulin Ratio 1.6 Triglycerides Cholesterol LDL Cholesterol, Calc VLDL Cholesterol, Calc HDL Cholesterol Cholesterol/HDL Ratio TSH 0.377 Urine Color Urine Appearance Urine pH Ur Specific [place] Urine Protein Urine Glucose (UA) Urine Ketones Urine Blood Urine Nitrite Urine Bilirubin Urine Urobilinogen Ur Leukocyte Esterase Adenovirus (PCR) Not Detected B. pertussis DNA (PCR) Not Detected B.parapertussis DNA PCR Not Detected C. pneumoniae DNA (PCR) Not Detected Coronavirus OC43 (PCR) Not Detected Coronavirus HKU1 (PCR) Not Detected Coronavirus 229E (PCR) Not Detected SARS-CoV-2 (PCR) Not Detected Coronavirus NL63 (PCR) Not Detected Human Metapneumovir PCR Not Detected Influenza Type A (PCR) Not Detected Influenza Type B (PCR) Not Detected M. pneumoniae (PCR) Not Detected Parainfluenza 1 (PCR) Not Detected Parainfluenza 2 (PCR) Not Detected Parainfluenza 3 (PCR) Not Detected Parainfluenza 4 (PCR) Not Detected RSV (PCR) Not Detected Entero/Rhino (PCR) Not Detected 08/14/23 08/14/23 08/14/23 01:36 05:26 05:33 WBC 4.78 L RBC 3.85 L Hgb 11.9 L Hct 35.3 L MCV 91.7 MCH 30.9 MCHC 33.7 RDW Std Deviation 42.4 RDW Coeff of Nelli 12.6 Plt Count 151 MPV 9.3 L Immature Gran % (Auto) 0.2 Neut % (Auto) 49.2 Lymph % (Auto) 34.3 [place] % (Auto) 13.2 Eos % (Auto) 2.3 Baso % (Auto) 0.8 Neut # (Auto) 2.35 Lymph # (Auto) 1.64 [place] # (Auto) 0.63 H Eos # (Auto) 0.11 Baso # (Auto) 0.04 Immature Gran # (Auto) 0.01 PT INR APTT PTT Ratio Sodium 138 Potassium 3.8 Chloride 106 Carbon Dioxide 25 Anion Gap 7 BUN 18 Creatinine 1.14 D Est Cr Clr Drug Dosing 52.3 Est GFR ( Amer) 72.5 Est GFR (Non-Af Amer) 62.6 BUN/Creatinine Ratio 15.8 Glucose 112 H POC Glucose 92 127 H Estimat Average Glucose 157 Hemoglobin A1c 7.1 H Calcium 8.9 Magnesium 1.7 Total Bilirubin AST ALT Alkaline Phosphatase Ammonia 21.0 Troponin I High Sens Total Protein Albumin Globulin Albumin/Globulin Ratio Triglycerides 81 Cholesterol 113 LDL Cholesterol, Calc 52 VLDL Cholesterol, Calc 16 HDL Cholesterol 45 Cholesterol/HDL Ratio 2.5 TSH Urine Color Urine Appearance Urine pH Ur Specific [place] Urine Protein Urine Glucose (UA) Urine Ketones Urine Blood Urine Nitrite Urine Bilirubin Urine Urobilinogen Ur Leukocyte Esterase Adenovirus (PCR) B. pertussis DNA (PCR) B.parapertussis DNA PCR C. pneumoniae DNA (PCR) Coronavirus OC43 (PCR) Coronavirus HKU1 (PCR) Coronavirus 229E (PCR) SARS-CoV-2 (PCR) Coronavirus NL63 (PCR) Human Metapneumovir PCR Influenza Type A (PCR) Influenza Type B (PCR) M. pneumoniae (PCR) Parainfluenza 1 (PCR) Parainfluenza 2 (PCR) Parainfluenza 3 (PCR) Parainfluenza 4 (PCR) RSV (PCR) Entero/Rhino (PCR) 08/14/23 08/14/23 07:15 07:19 WBC RBC Hgb Hct MCV MCH MCHC RDW Std Deviation RDW Coeff of Nelli Plt Count MPV Immature Gran % (Auto) Neut % (Auto) Lymph % (Auto) [place] % (Auto) Eos % (Auto) Baso % (Auto) Neut # (Auto) Lymph # (Auto) [place] # (Auto) Eos # (Auto) Baso # (Auto) Immature Gran # (Auto) PT INR APTT PTT Ratio Sodium Potassium Chloride Carbon Dioxide Anion Gap BUN Creatinine Est Cr Clr Drug Dosing Est GFR ( Amer) Est GFR (Non-Af Amer) BUN/Creatinine Ratio Glucose POC Glucose 134 H Estimat Average Glucose Hemoglobin A1c Calcium Magnesium Total Bilirubin AST ALT Alkaline Phosphatase Ammonia Troponin I High Sens Total Protein Albumin Globulin Albumin/Globulin Ratio Triglycerides Cholesterol LDL Cholesterol, Calc VLDL Cholesterol, Calc HDL Cholesterol Cholesterol/HDL Ratio TSH Urine Color Yellow Urine Appearance Clear Urine pH 6.0 Ur Specific [place] > 1.045 H Urine Protein Negative Urine Glucose (UA) Negative Urine Ketones Trace H Urine Blood Negative Urine Nitrite Negative Urine Bilirubin Negative Urine Urobilinogen Negative Ur Leukocyte Esterase Negative Adenovirus (PCR) B. pertussis DNA (PCR) B.parapertussis DNA PCR C. pneumoniae DNA (PCR) Coronavirus OC43 (PCR) Coronavirus HKU1 (PCR) Coronavirus 229E (PCR) SARS-CoV-2 (PCR) Coronavirus NL63 (PCR) Human Metapneumovir PCR Influenza Type A (PCR) Influenza Type B (PCR) M. pneumoniae (PCR) Parainfluenza 1 (PCR) Parainfluenza 2 (PCR) Parainfluenza 3 (PCR) Parainfluenza 4 (PCR) RSV (PCR) Entero/Rhino (PCR) Diagnostic Findings Brain MRI 08/13/23 15:03 MRI OF THE BRAIN WITHOUT CONTRAST CLINICAL HISTORY: Slurred speech. COMPARISON STUDY: None. TECHNIQUE: Utilizing a 1.5 Beata magnet and dedicated coil, multiplanar, multiecho imaging of the brain was performed without IV contrast. FINDINGS: There are no foci of restricted diffusion to suggest acute infarct. No acute intracranial hemorrhage, midline shift or mass effect is present. The ventricular system is unremarkable. Basal cisterns are patent. There are no extra-axial collections. Flow-voids for the major intracranial vessels are present. Moderate white matter T2 hyperintense foci suggest small vessel disease. No intracranial mass on unenhanced exam is evident. Calvarial signal is normal. Tiny air-fluid level within the left maxillary sinus is present. IMPRESSION: No acute intracranial findings. ACT 112: Negative or not required by law. Electronically signed by: Benny Juarez M.D. 08/13/2023 5:11 PM Head CTA 08/13/23 19:35 Exam(s): CTA HEAD With Contrast IV Amt: 115 ml opti 320 EXAM: CT Angiography Head With Intravenous Contrast CLINICAL HISTORY: Reason for exam: Concern for TIA. TECHNIQUE: Axial computed tomographic angiography images of the head with intravenous contrast. CTDI is 20.76 mGy and DLP is 464.47 mGy-cm. Automated exposure control was utilized for the study. A dose lowering technique was utilized adhering to the principles of ALARA. MIP reconstructed images were created and reviewed. CONTRAST: Patient received 115 ml opti 320 of IV contrast COMPARISON: No relevant prior studies available. FINDINGS: Right internal carotid artery: No acute findings. Intracranial segment is patent with no significant stenosis. No aneurysm. Right anterior cerebral artery: Unremarkable. No occlusion or significant stenosis. No aneurysm. Right middle cerebral artery: Unremarkable. No occlusion or significant stenosis. No aneurysm. Right posterior cerebral artery: Unremarkable. No occlusion or significant stenosis. No aneurysm. Right vertebral artery: Unremarkable as visualized. Left internal carotid artery: No acute findings. Intracranial segment is patent with no significant stenosis. No aneurysm. Left anterior cerebral artery: Unremarkable. No occlusion or significant stenosis. No aneurysm. Left middle cerebral artery: Unremarkable. No occlusion or significant stenosis. No aneurysm. Left posterior cerebral artery: Unremarkable. No occlusion or significant stenosis. No aneurysm. Left vertebral artery: Unremarkable as visualized. Basilar artery: Unremarkable. No occlusion or significant stenosis. No aneurysm. IMPRESSION: Normal head CTA. Electronically signed by: Ray Hawk MD 08/13/23 22:12 PM Neck CTA 08/13/23 19:35 Exam(s): CTA NECK With Contrast IV Amt: 115 ml opti 320 EXAM: CT Angiography Neck With Intravenous Contrast CLINICAL HISTORY: Reason for exam: Concern for TIA. TECHNIQUE: Routine carotid CT angiography protocol was performed with intravenous contrast. NASCET criteria using the distal ICAs for comparison were used for evaluation of stenoses. CTDI is 20.76 mGy and DLP is 464.47 mGy-cm. Automated exposure control was utilized for the study. A dose lowering technique was utilized adhering to the principles of ALARA. MIP reconstructed images were created and reviewed. CONTRAST: Patient received 115 ml opti 320 of IV contrast COMPARISON: None. FINDINGS: VASCULATURE: Right common carotid artery: Unremarkable. No occlusion or significant stenosis. No dissection. Right internal carotid artery: Mild [id number] atherosclerotic calcifications at the right carotid bulb. Right external carotid artery: Severe stenosis at the ostia of the right external carotid artery. Right vertebral artery: Unremarkable. No occlusion or significant stenosis. No dissection. Left common carotid artery: Unremarkable. No occlusion or significant stenosis. No dissection. Left internal carotid artery: Mild [id number] atherosclerotic calcifications at the left carotid bulb. Left external carotid artery: Moderate stenosis at the ostia of the left external carotid artery. Left vertebral artery: Unremarkable. No occlusion or significant stenosis. No dissection. NECK: Bones/joints: Unremarkable. No acute fracture. Soft tissues: Unremarkable. Lung apices: Clear. CAROTID STENOSIS REFERENCE USING NASCET CRITERIA: % ICA stenosis = (1 - narrowest ICA diameter/diameter of distal cervical ICA) x 100. Mild - <50% stenosis. Moderate - 50-69% stenosis. Severe - 70-94% stenosis. Near occlusion - 95-99% stenosis. Occluded - 100% stenosis. IMPRESSION: No acute findings in the arteries of the neck. Electronically signed by: Ray Hawk MD 08/13/23 22:[address] 08/14/23 05:29 CT OF THE HEAD WITHOUT CONTRAST CLINICAL HISTORY: Headache. COMPARISON STUDY: MRI of the brain and CTA of the head August 13, 2023. CT DOSE: 625.8 mGy.cm TECHNIQUE: Helical axial images of the head were obtained without IV contrast. Automated exposure control was utilized for the study. A dose lowering technique was utilized adhering to the principles of ALARA. FINDINGS: Minimal intravascular contrast is from recent contrast-enhanced CT. No acute intracranial hemorrhage, midline shift or mass effect is present. White matter hypodensity suggests small vessel disease. The ventricular system is unremarkable. The basal cisterns are patent. No extra-axial collections are present. There are no findings to suggest acute dural sinus thrombosis or acute territorial infarct. No significant calvarial abnormalities are present. Visualized portions of the sinuses and mastoid air cells are clear. IMPRESSION: No acute intracranial findings. ACT 112: Negative or not required by law. Electronically signed by: Benny Juarez M.D. 08/14/2023 7:03 AM
[2023-08-14] MEDS ORDERED: ONDANSETRON INJ 2 MG/ML 2 ML VIAL IV PRN (08:10)
[2023-08-14] MEDS ORDERED: CHOLECALCIFEROL 1,000 UNITS 25 MCG TAB PO SCH (09:00)
[2023-08-14] MEDS: ATORVASTATIN 40 MG TAB PO SCH (09:06)
[2023-08-14] MEDS: METOPROLOL TARTRATE 25 MG TAB PO SCH ×2 (09:07→21:17)
[2023-08-14] MEDS: FERROUS SULFATE 325 MG TAB PO SCH (09:09)
[2023-08-14] MEDS: ASPIRIN 81 MG ECTAB PO SCH (09:10)
[2023-08-14] MEDS: lisinopril 20 MG TAB PO SCH (09:10)
[2023-08-14] MEDS: CHOLECALCIFEROL 1,000 UNITS 25 MCG TAB PO SCH (09:11)
[2023-08-14] MEDS: prednisoLONE acetate 1% OP SUSP 5 ML BTL OPB SCH (09:14)
[2023-08-14] MEDS: INSULIN ASPART PER UNIT CHARGE SC SCH ×4 (09:21→21:57)
--- NOTE | 2023-08-14 11:46 | Electrocardiogram Report ---
Test Reason : Blood Pressure : / mmHG Vent. Rate : 060 BPM Atrial Rate : 060 BPM P-R Int : 136 ms QRS Dur : 072 ms QT Int : 418 ms P-R-T Axes : 014 017 041 degrees QTc Int : 418 ms Sinus rhythm with Premature atrial complexes Otherwise normal ECG When compared with ECG of 13-AUG-2023 14:51, Sinus rhythm has replaced Atrial fibrillation Confirmed by Tye Rodriguez ([id number]) on 08/14/2023 11:46:18 AM Referred By: REFERRED SELF Confirmed By:Tye Rodriguez
[2023-08-14] MEDS: CLOPIDOGREL BISULFATE 75 MG TAB PO SCH (11:50)
--- NOTE | 2023-08-14 13:05 | Communication Note ---
Date of Service: August 14, 2023 Family at bedside noted slurring of his speech and the patient. RN paged me, went to eval patient at bedside urgently. Patient appeared tired, not very conversational, but whenever he was speaking he was articulating clearly. No facial deviation/no tongue deviation noted. Upper and lower extremity strength symmetrical and normal. No numbness and tingling per patient. d/w oncall neurology, sending EEG, close monitoring, neurochecks. Re-image w/ any new documented focal weakness/symptoms.
--- NOTE | 2023-08-14 15:48 | Hospitalist Progress Note ---
Date of Service August 14, 2023 Assessment & Plan (1) TIA (transient ischemic attack): Plan: Patient presents to the ED with episode of right arm weakness and word finding difficulty per family. CT head done in [facility] did not show acute finding. The symptoms lasted for about 10 minutes and subsided on its own per family. Patient denied any numbness or weakness of any part of the body. He denies any chest pain or palpitation. He is being managed for the following: TIA Outpatient CT head with no acute finding. Admitting CT head with no acute finding. Admitting CTA head and neck with no acute finding. MRI brainno acute findings, stroke ruled out. EKGreported to have atrial fibrillation. Prior attending reviewed with Dr. Flores from cardiology; consistent with sinus rhythm with PACs. No noted A-fib on telemetry review. Discussed with neurology, recommendations outpatient radiation monitor, DAPT for 21 days, drop ASA. Plavix added 08/14. Continue. Continue home aspirin. Continue telemetry monitoring and neurochecks. Patient will need extended cardiac monitoring as outpatient after follow-up with primary care doctor. Echo done, await final read. Await EEG. Neurology on board, appreciate recommendation A1c 7.1, LDL 52. Continue on aspirin and Lipitor Hypertensioncontinue on lisinopril, metoprolol Type 2 diabetes mellitusplaced on glargine, ACHS. Will add NovoLog if blood glucose is elevated. A1c 7.1. Hyperlipidemiacontinue on Lipitor. Discussed with patient's family at bedside. Answered questions/queries. Admission and Anticipated Discharge Date Admission Date: August 13, 2023 Subjective Patient was seen and examined at bedside. Patient was lying in bed, on room air, NAD, reports no new acute event overnight. Per patient's and daughter at bedside, patient is forgetful at baseline. He has not slept well in the last several days per patient's . Patient denies any problems swallowing food. He has no problem articulating clearly. Denies headache or chest pain or dizziness or palpitation. Patient had a perceived event of slurred speech again during the day by his family, I evaluated the patient at bedside. See communication note. Physical Exam Physical Exam: GENERAL: Alert and oriented x3. NAD, on RA. HEENT: No pallor, no icterus. Pupils equal, round and reactive to light. Oral mucosa moist. NECK: No JVD, no neck masses. HEART: S1 and S2 heard. Regular rate and rhythm. No murmur, no gallop. RESPIRATORY SYSTEM: Normal AP diameter. No accessory muscle use. No wheezing, no crackles. ABDOMEN: Soft, bowel sounds present, nontender, no distention. CENTRAL NERVOUS SYSTEM: No facial droop. Speech is clear. Obeys simple commands. Moves extremities. Power 5/5 all extremities. EXTREMITIES: No edema, no erythema seen. Results & Data Results & Data Vital Signs (Past 12 Hours) Vital Signs Temp Pulse Pulse Resp BP BP Pulse Ox 08/14/23 11:56 37.0 C 70 17 132/86 92 08/14/23 08:13 36.9 C 66 16 171/75 H 95 08/14/23 07:38 58 L 08/14/23 05:43 67 186/90 H 95 08/14/23 03:45 36.6 C 61 18 136/79 93 O2 Del Method 08/14/23 11:56 Room Air 08/14/23 08:13 Room Air 08/14/23 07:38 08/14/23 05:43 Room Air 08/14/23 03:45 Room Air
[2023-08-14] MEDS ORDERED: ACETAMINOPHEN 325 MG TAB PO ONE (19:00)
--- NOTE | 2023-08-14 19:37 | Communication Note ---
Date of Service: August 14, 2023 740 PM Notified by RN of right-sided facial droop, right upper extremity weakness and aphasia. Intermittent episodes in a.m. as per RN. BSG 112 PPE Aphasic No facial asymmetry MMTS BUE 4/[address] head: 1. Mild age-related findings. 2. No acute infarct, bleed, or acute intracranial abnormality. CT angio head: 1. No aneurysm or large vessel occlusion. 2. Normal exam, no interval change. [place] [facility] [place]. Concern for stuttering lacunar infarct rule out seizures. He recommends Plavix 300 mg load (not given on admission) Continuing daily aspirin 81 mg and Plavix 75 mg medications. EEG and Keppra 750 mg IV 1 dose for seizure prophylaxis. Will relay to AM provider.
[2023-08-14] MEDS ORDERED: OPTIRAY 320 125ml IV ONE (20:12)
--- NOTE | 2023-08-14 20:35 | CT Scan Report ---
Exam(s): CTA HEAD With Contrast IV Amt: 116 ml opti 320 EXAM: CT Angiography Head With Intravenous Contrast CLINICAL HISTORY: Reason for exam: neuro deficit, acute stroke suspected. TECHNIQUE: Axial computed tomographic angiography images of the head with intravenous contrast. CTDI is 67.24 mGy and DLP is 781.82 mGy-cm. Automated exposure control was utilized for the study. A dose lowering technique was utilized adhering to the principles of ALARA. MIP reconstructed images were created and reviewed. CONTRAST: Patient received 116 ml opti 320 of IV contrast COMPARISON: CTA head 08/13/23. FINDINGS: Right internal carotid artery: Patent. Right anterior cerebral artery: Patent. Right middle cerebral artery: Patent. Right posterior cerebral artery: Patent. Right vertebral artery: Patent. Left internal carotid artery: Patent. Left anterior cerebral artery: Patent. Left middle cerebral artery: Patent. Left posterior cerebral artery: Patent. Left vertebral artery: Patent. Basilar artery: Patent. Other: Patent [place] of [place]. No interval change or new finding. IMPRESSION: 1. No aneurysm or large vessel occlusion. 2. Normal exam, no interval change. Communications: Call Doctor Stroke Electronically signed by: Stephanie Ferrara M.D. 08/14/23 20:35 PM
--- NOTE | 2023-08-14 20:36 | CT Scan Report ---
Exam(s): CT HEAD Without Contrast EXAM: CT Head Without Intravenous Contrast CLINICAL HISTORY: Reason for exam: neuro deficit, acute stroke suspected. TECHNIQUE: Axial computed tomography images of the head/brain without intravenous contrast. CTDI is 67.24 mGy and DLP is 781.82 mGy-cm. Automated exposure control was utilized for the study. A dose lowering technique was utilized adhering to the principles of ALARA. COMPARISON: Head CT 5:41 AM, same day and MRI brain 08/13/23. FINDINGS: Brain: No mass effect or acute infarct. No acute hemorrhage. Mild atrophy and chronic white matter disease, stable, given differences in technique. Ventricles: No hydrocephalus or midline shift. Bones/joints: No acute skull lesion. Soft tissues: No scalp hematoma. Sinuses: Clear. Mastoid air cells: No mastoid effusion. IMPRESSION: 1. Mild age-related findings. 2. No acute infarct, bleed, or acute intracranial abnormality. Communications: Call Doctor Stroke Electronically signed by: Stephanie Ferrara M.D. 08/14/23 20:35 PM
[2023-08-14 20:39] LABS: INR 1.1 (0.9-1.1); Partial Thromboplastin Ratio 0.9; Partial Thromboplastin Time 26 Seconds (21-31); Prothrombin Time 11.9 Seconds (9.0-12.0)
[2023-08-14] MEDS: POTASSIUM CHLORIDE / WTR 10 MEQ/100 ML PLCT IV SCH ×2 (21:06→22:03)
[2023-08-14] MEDS: LANTUS PER UNIT CHARGE SQ SCH (21:58)
[2023-08-14] MEDS ORDERED: levETIRAcetam 750 MG in SODIUM CHLOR 0.9% MINI-B 100 ML IV STA (23:15)
[2023-08-14] MEDS ORDERED: CLOPIDOGREL BISULFATE 300 MG TAB PO STA (23:16)
[2023-08-14] MEDS ORDERED: PHARMACIST DISCHARGE MED REC CONSULT PRN (23:39)
[2023-08-14] MEDS ORDERED: levETIRAcetam 750 MG in 0.9 % SODIUM CHLORIDE 100 ML IV ONE (23:45)
[2023-08-14] MEDS: ACETAMINOPHEN 325 MG TAB PO SCH (23:48)
[2023-08-15] MEDS ORDERED: LACTATED RINGER'S 1,000 ML IV ONE (01:00)
[2023-08-15] MEDS: ACETAMINOPHEN 325 MG TAB PO SCH ×4 (05:14→23:56)
[2023-08-15 08:03] LABS: Basophils # (auto) 0.05 K/uL (0.00-0.20); Eosinophils # (auto) 0.06 K/uL (0.00-0.50); Eosinophils % (auto) 1.2 %; Hematocrit (blood only) 31.3 % (42.0-52.0); Hemoglobin 10.7 g/dl (14.0-18.0); Immature Granulocytes # (auto) 0.03 K/uL (0.01-0.20); Immature Granulocytes % (auto) 0.6 %; Mean Corpuscular Hemoglobin 30.7 pg (25.0-34.0); Mean Corpuscular Hgb Conc 34.2 g/dL (32.0-36.0); Mean Corpuscular Volume 89.7 fL (80.0-100.0); Monocytes # (auto) 0.61 K/uL (0.11-0.59); Monocytes % (auto) 12.2 %; Neutrophils # (auto) 3.06 K/uL (1.40-6.50); Platelet Count 146 K/uL (130-400); RDW Coefficient of Variation 12.5 % (11.5-14.5); RDW Standard Deviation 40.8 fL (36.4-46.3); Red Blood Count 3.49 M/uL (4.70-6.10); White Blood Count 5.01 K/ul (4.8-10.8)
[2023-08-15] MEDS: INSULIN ASPART PER UNIT CHARGE SC SCH ×4 (08:10→20:36)
[2023-08-15 08:17] LABS: BUN Creatinine Ratio 11.7 (10-20); Calcium 8.3 mg/dl (8.6-10.3); Creatinine Clr Calc Pharmacy 53.8 ml/min; Est GFR (African American) 74.9 ml/min; Est GFR (Non-African American) 64.6 ml/min; Magnesium 1.7 mg/dl (1.7-2.4); Phosphorus 3.1 mg/dl (2.5-4.9)
[2023-08-15] MEDS: METOPROLOL TARTRATE 25 MG TAB PO SCH ×2 (08:35→20:40)
[2023-08-15] MEDS: lisinopril 20 MG TAB PO SCH (08:36)
[2023-08-15] MEDS: FERROUS SULFATE 325 MG TAB PO SCH (08:36)
[2023-08-15] MEDS: ATORVASTATIN 40 MG TAB PO SCH (08:36)
[2023-08-15] MEDS: ASPIRIN 81 MG ECTAB PO SCH (08:36)
[2023-08-15] MEDS: CHOLECALCIFEROL 1,000 UNITS 25 MCG TAB PO SCH (08:36)
[2023-08-15] MEDS: CLOPIDOGREL BISULFATE 75 MG TAB PO SCH (08:36)
[2023-08-15] MEDS: FLUTICASONE PROPIONATE NA SPR 16 GM BTL NAE SCH (08:37)
[2023-08-15] MEDS: prednisoLONE acetate 1% OP SUSP 5 ML BTL OPB SCH (08:39)
--- NOTE | 2023-08-15 14:04 | Pharmacy Report ---
Pharmacy Glycemic Short Note 2 - Date of Service August 15, 2023 - Glycemic Short BSG Results (Last 24 hours): 08/14/23 08/14/23 08/14/23 16:17 19:39 21:00 Glucose POC Glucose 107 H 112 H 112 H 08/15/23 08/15/23 08/15/23 06:44 07:37 11:18 Glucose 96 POC Glucose 96 115 H OUTPATIENT ANTIDIABETIC REGIMEN: * Toujeo 10 units SC PM * Janumet mg 1 tab PO BID * HbA1c: 7.1% (08/14/23) ASSESSMENT: 08/15: * Chris received 6 units of insulin yesterday, all bolus. Basal dose at bedtime was held per provider's orders. BSGs were: 150-559-626-112 mg/dL. * Fasting BSG despite basal being held last night was below goal at 96 mg/dL. Will hold further basal doses for now. * No change to Novolog. 08/14: * 73 year old admitted with concerns for TIA. Type 2 diabetic - A1c 7.1%. Pharmacy consulted for glycemic management. Patient received total of 11 units of insulin yesterday, of which 8 units were basal insulin * Fasting BSG 127 mg/dL - plan to continue similar parameters today PLAN FOR INPATIENT GLYCEMIC CONTROL: * Hold outpatient oral diabetes medications * Basal insulin * HOLD * Bolus insulin * NovoLog per scale ACHS or Q6hrs while NPO * Goal Range: Low 110 mg/dL - High 140 mg/dL * Correction Factor: 30 mg/dL/unit * Nutritional / Prandial insulin per carb ratio of 1 unit per 10 grams CHO consumed
--- NOTE | 2023-08-15 14:48 | Pharmacy Report ---
- Date of Service August 15, 2023 - Pharmacy CVA/TIA Medication Review Medications to Prevent Stroke handout has been added to the patients discharge packet. Antiplatelet(s) * Aspirin 81 mg PO daily (stop after 21 days) * Clopidogrel 75 mg PO daily (continue lifetime) Cholesterol * High intensity statin: atorvastatin 40 mg daily DVT Prophylaxis * SCD knee Therapeutic Anticoagulation * No history of Afib/Aflutter noted Type 2 Diabetes * Patient has T2DM, but per Dr. Simmons, a diabetes medication with proven CVD benefit will be deferred to their outpatient provider due to familiarity with risks/benefits of such therapies. "Medications to prevent stroke" handout has already been added to the patient's discharge packet, which instructs the patient to follow up with their outpatient provider to evaluate which diabetes medication with proven CVD benefit is best for them
[2023-08-15] MEDS ORDERED: hydrALAZINE HCL 20 MG/ML VIAL IV PRN (15:56)
--- NOTE | 2023-08-15 16:04 | Hospitalist Progress Note ---
Date of Service August 15, 2023 Assessment & Plan (1) TIA (transient ischemic attack): Plan: Patient presents to the ED with episode of right arm weakness and word finding difficulty per family. CT head done in [facility] did not show acute finding. The symptoms lasted for about 10 minutes and subsided on its own per family. Patient denied any numbness or weakness of any part of the body. He denies any chest pain or palpitation. He is being managed for the following: TIA Outpatient CT head with no acute finding. Admitting CT head with no acute finding. Admitting CTA head and neck with no acute finding. MRI brainno acute findings, stroke ruled out. EKGreported to have atrial fibrillation. Prior attending reviewed with Dr. Flores from cardiology; consistent with sinus rhythm with PACs. No noted A-fib on telemetry review. Discussed with neurology, recommendations outpatient court monitor, DAPT for 21 days, then drop ASA. Plavix added 08/14. Continue. Continue home aspirin. Pt and his family advised to avoid Omeprazole while on plavix. Continue telemetry monitoring and neurochecks. Patient will need extended cardiac monitoring as outpatient after follow-up with primary care doctor. Echo reviewed, no evidence of ASD. Await EEG results. Neurology on board, appreciate recommendation A1c 7.1, LDL 52. Continue on aspirin and Lipitor Hypertensioncontinue on lisinopril, metoprolol Type 2 diabetes mellitusplaced on glargine, ACHS. Will add NovoLog if blood glucose is elevated. A1c 7.1. Hyperlipidemiacontinue on Lipitor. Discussed with patient's family at bedside. Answered questions/queries. Awaiting EEG results and final neuro recs for dispo. Admission and Anticipated Discharge Date Admission Date: August 13, 2023 Subjective Patient was seen and examined at bedside. Patient was lying in bed, on room air, NAD, resting comfortably. Patient's and daughter at bedside. Overnight, patient again had an event of right-sided facial droop and right upper extremity weakness and aphasia. Case was discussed by timber setter with [facility] [place] stroke specialist, recommended loading dose of Plavix and continuing current DAPT. Also recommended EEG, Keppra 750 mg one-time dose for seizure prophylaxis. Patient reports headache under control today. Patient denies any problems swallowing food. He has no problem articulating clearly. Denies headache or chest pain or dizziness or palpitation. Physical Exam Physical Exam: GENERAL: Alert and oriented x3. NAD, on RA. HEENT: No pallor, no icterus. Pupils equal, round and reactive to light. Oral mucosa moist. NECK: No JVD, no neck masses. HEART: S1 and S2 heard. Regular rate and rhythm. No murmur, no gallop. RESPIRATORY SYSTEM: Normal AP diameter. No accessory muscle use. No wheezing, no crackles. ABDOMEN: Soft, bowel sounds present, nontender, no distention. CENTRAL NERVOUS SYSTEM: No facial droop. Speech is clear. Obeys simple commands. Moves extremities. Power 5/5 all extremities. EXTREMITIES: No edema, no erythema seen. Results & Data Results & Data Vital Signs (Past 12 Hours) Vital Signs Temp Pulse Pulse Resp BP Pulse Ox O2 Del Method 08/15/23 15:12 36.5 C 62 18 127/67 94 Room Air 08/15/23 11:47 36.5 C 56 L 18 182/73 H 95 Room Air 08/15/23 08:00 Room Air 08/15/23 07:56 36.5 C 52 L 18 160/81 H 92 Room Air 08/15/23 07:00 49 L
[2023-08-16] MEDS: ACETAMINOPHEN 325 MG TAB PO SCH ×2 (05:59→12:19)
[2023-08-16 07:25] LABS: Basophils # (auto) 0.05 K/uL (0.00-0.20); Basophils % (auto) 1.1 %; Eosinophils # (auto) 0.18 K/uL (0.00-0.50); Eosinophils % (auto) 3.9 %; Hematocrit (blood only) 35.1 % (42.0-52.0); Hemoglobin 11.8 g/dl (14.0-18.0); Immature Granulocytes # (auto) 0.02 K/uL (0.01-0.20); Immature Granulocytes % (auto) 0.4 %; Lymphocytes # (auto) 1.13 K/uL (1.20-3.40); Lymphocytes % (auto) 24.4 %; Mean Corpuscular Hemoglobin 30.6 pg (25.0-34.0); Mean Corpuscular Hgb Conc 33.6 g/dL (32.0-36.0); Mean Corpuscular Volume 91.2 fL (80.0-100.0); Mean Platelet Volume 9.7 fL (9.4-12.4); Monocytes # (auto) 0.51 K/uL (0.11-0.59); Neutrophils # (auto) 2.75 K/uL (1.40-6.50); Neutrophils % (auto) 59.2 %; Platelet Count 162 K/uL (130-400); RDW Coefficient of Variation 12.3 % (11.5-14.5); Red Blood Count 3.85 M/uL (4.70-6.10); White Blood Count 4.64 K/ul (4.8-10.8)
[2023-08-16] MEDS: CHOLECALCIFEROL 1,000 UNITS 25 MCG TAB PO SCH (07:36)
[2023-08-16] MEDS: FERROUS SULFATE 325 MG TAB PO SCH (07:37)
[2023-08-16] MEDS: lisinopril 20 MG TAB PO SCH (07:37)
[2023-08-16] MEDS: ASPIRIN 81 MG ECTAB PO SCH (07:38)
[2023-08-16] MEDS: ATORVASTATIN 40 MG TAB PO SCH (07:38)
[2023-08-16] MEDS: CLOPIDOGREL BISULFATE 75 MG TAB PO SCH (07:38)
[2023-08-16] MEDS: FLUTICASONE PROPIONATE NA SPR 16 GM BTL NAE SCH (07:39)
[2023-08-16] MEDS: prednisoLONE acetate 1% OP SUSP 5 ML BTL OPB SCH (07:40)
[2023-08-16 07:52] LABS: BUN Creatinine Ratio 12.7 (10-20); Creatinine Clr Calc Pharmacy 54.2 ml/min; Est GFR (African American) 75.7 ml/min; Est GFR (Non-African American) 65.3 ml/min; Magnesium 1.5 mg/dl (1.7-2.4); Phosphorus 3.3 mg/dl (2.5-4.9); Potassium 4.2 mmol/L (3.5-5.1)
[2023-08-16 08:17] LABS: Calcium 8.8 mg/dl (8.6-10.3)
[2023-08-16] MEDS: METOPROLOL TARTRATE 25 MG TAB PO SCH (08:31)
[2023-08-16] MEDS: INSULIN ASPART PER UNIT CHARGE SC SCH ×2 (08:32→12:28)
[2023-08-16] MEDS: MAGNESIUM SULFATE / D5W 1 GM/100 ML BAG IV SCH ×2 (10:22→12:17)
[2023-08-16] MEDS ORDERED: hydroCHLOROthiazide 25 MG TAB PO SCH (12:15)
[2023-08-16] MEDS ORDERED: STROKE PATIENT DISCHARGE STA (12:24)
--- NOTE | 2023-08-16 12:29 | Discharge Summary ---
Date of Service August 16, 2023 Admission HPI Per Admitting Provider History obtained from interview with the patient and chart review. Past medical history of CAD status post CABG (1 year back), hypertension, type 2 diabetes mellitus. Patient reports that he had weakness on his right arm yesterday afternoon which lasted about 10 minutes and subsided on its own. His family also noticed that he has some word finding difficulties since yesterday as well. Patient reports headache. He denies any numbness, weakness of any body part today. He denies dizziness, visual changes. He was evaluated in the emergency department in [facility] yesterday; found to have negative CT head and was discharged home. On presentation to the ED, patient was normotensive, bradycardic and saturating well on room air. Brain MRI was done to rule out a stroke; no acute findings. EKG was done; was interpreted to have atrial fibrillation. It was reviewed with on-call electric furnace operator (Dr. Flores); consistent with sinus rhythm with PAC. Telemetry also confirms sinus rhythm with PAC. Patient is admitted to the hospital for further workup. Admission Exam Per Admitting Provider Constitutional: WD/WN, vitals as above, NAD, sitting up in bed, pleasant, conversing easily Respiratory: normal respiratory effort, lungs clear to auscultation, no wheeze, rales, rhonchi. Normal insp/exp effort, no accessory muscle use Cardiovascular: RRR, no murmur, no edema Vessels: no JVD or carotid bruit Chest: normal inspection of chest Abdomen: normal bowel sounds, soft, nontender, no hepatosplenomegaly Musculoskeletal: no cyanosis or clubbing, extremities motor strength 5/5 Skin: no rashes, warm and dry normal turgor Neurologic: PERRL, EOMI, accommodation nl, no face palsy, no dysarthria CN's II- XI intact bilaterally and moves all extremities Psychiatric: A+Ox3, euthymic affect Principal Diagnosis TIA Hypertensive urgency Headache History of T2DM Discharge Exam GENERAL: Alert and oriented x3. NAD, on RA. HEENT: No pallor, no icterus. Pupils equal, round and reactive to light. Oral mucosa moist. NECK: No JVD, no neck masses. HEART: S1 and S2 heard. Regular rate and rhythm. No murmur, no gallop. RESPIRATORY SYSTEM: Normal AP diameter. No accessory muscle use. No wheezing, no crackles. ABDOMEN: Soft, bowel sounds present, nontender, no distention. CENTRAL NERVOUS SYSTEM: No facial droop. Speech is clear. Obeys simple commands. Moves extremities. Power 5/5 all extremities. EXTREMITIES: No edema, no erythema seen. Discharge Data Allergies Allergy/AdvReac Type Severity Reaction Status Date / Time No Known Allergies Allergy Unverified 08/13/23 16:02 Consultations 08/13/23 17:51 ED Decision to Admit Stat 08/13/23 18:20 Consult Neurology Routine Ordered Studies 08/13/23 15:03 MRI Brain [MR brain wo con] Stat 08/13/23 19:35 CTA head w con [CT angio head w con] Urgent CTA neck with con [CT angio neck with con] Urgent 08/14/23 05:29 CT head/brain wo con Stat 08/14/23 19:49 CT angio head w con Stat CT head/brain wo con Stat Hospital Course (1) TIA (transient ischemic attack): Patient presents to the ED with episode of right arm weakness and word finding difficulty per family. CT head done in [facility] did not show acute finding. The symptoms lasted for about 10 minutes and subsided on its own per family. Patient denied any numbness or weakness of any part of the body. He denies any chest pain or palpitation. He was managed for the following: TIA Outpatient CT head with no acute finding. Admitting CT head with no acute finding. Admitting CTA head and neck with no acute finding. MRI brainno acute findings, stroke ruled out. EKGreported to have atrial fibrillation. Prior attending reviewed with Dr. Flores from cardiology; consistent with sinus rhythm with PACs. DDx: seizure, complex headache No noted A-fib on telemetry review. Discussed with neurology, recommendations outpatient metal tube cutter, DAPT for 21 days, then drop ASA. Plavix added 08/14. Continue. Continue home aspirin. Pt and his family advised to avoid Omeprazole while on plavix. Continue telemetry monitoring and neurochecks. Patient will need extended cardiac monitoring as outpatient after follow-up with primary care doctor. Echo reviewed, no evidence of ASD. Await EEG results. Neurology on board, appreciate recommendation. d/w neuro 08/16, plan to start 500 mg keppra bid for his symptoms A1c 7.1, LDL 52. Continue on aspirin and Lipitor Hypertensioncontinue on lisinopril, metoprolol Type 2 diabetes mellitusplaced on glargine, ACHS. Will add NovoLog if blood glucose is elevated. A1c 7.1. Hyperlipidemiacontinue on Lipitor. Discussed with patient's family at bedside. Answered questions/queries. Awaiting EEG results, family would like to go home and aware that they need to follow-up with the EEG results with PCP office. Patient is being discharged home with family support with following instruction at the point of discharge: Follow-up with your primary care physician within a week time and likely you will need labs CBC/CMP/magnesium/phosphorus. Establish and follow-up with neurology in 1 to 2 weeks time upon discharge. Because it was not very clear whether it was TIA versus seizure versus complex headache, you have also been started on Keppra per discussion with neurology which seem to help you while in the hospital. Continue with Keppra 500 mg twice a day. Take Tylenol 500 mg up to 4 times a day for headache. You will need Zio patch monitoring upon discharge, coordinate with your PCP office or neurology office to set up the test. Continue aspirin and Plavix 18 more days. Then continue with Plavix only. Drop aspirin. While on Plavix, avoid omeprazole. You underwent EEG, it has not been read yet, follow-up with your primary care office or neurology office on the final results of the test. Given h/o stroke and diabetes, you might benefit from modifying your diabetic medications [incorporation of either SGLT2 inhibitor or GLP-1 RA]. Defer this decision to your primary care office. Discuss with your primary care office when you visit in a week time upon discharge. Because your blood pressure were on the higher side while in hospital, hydrochlorothiazide small dose has been added. Continue to measure your blood pressure twice a day, maintain a log, take it to your primary care physician for further evaluation/management of your blood pressure. Please make sure that you are able to get your medications today by calling your pharmacy before you leave the hospital so that your treatment continuity is not broken. [facility] Attestation I certify that this patient is under my care and that I, or a physicians assistant professor of criminal justice working with me, had a face to-face encounter that meets the [facility] [id number] encounter requirements with this patient. The encounter with the patient was in whole, or in part, for the following medical condition, which is the primary reason for home health care (list medical condition): I certify that, based on my findings, the following services are medically necessary home health services: My clinical findings support the need for the above services because: Further, I certify that my clinical findings support that this patient is homebound (i.e. absences from home require considerable and taxing effort and are for medical reasons or hoahaoism services or infrequently or of short duration when for other reasons) because: Certification for Home Health Services: Based on the above findings, I certify that this patient is confined to the home and needs intermittent halfway care, physical therapy and/or speech therapy or continues to need occupational therapy. The patient is under my care, and I have initiated the establishment of the plan of care. This patient will be followed by a physician who will periodically review the plan of care. Total Time Total Time Spent Total Time Spent (In Minutes): 45 Discharge Plan Discharge Items Patient Disposition: Home - Self-Care Reason For Visit: A.FIB Discharge Diagnosis: TIA Hypertensive urgency Headache History of T2DM Activity: Resume your previous activity Non-emergency contact: Primary Care Provider Call non-emergency contact if: you have any medication questions, your symptoms worsen and your temperature is above 101.5 Follow-up/Referrals: Ang Pickard [Primary Care Provider] - Diet: Carb Consistent or DM2 and Heart Healthy Addtl Attending Provider Instructions: Follow-up with your primary care physician within a week time and likely you will need labs CBC/CMP/magnesium/phosphorus. Establish and follow-up with neurology in 1 to 2 weeks time upon discharge. Because it was not very clear whether it was TIA versus seizure versus complex headache, you have also been started on Keppra per discussion with neurology which seem to help you while in the hospital. Continue with Keppra 500 mg twice a day. Take Tylenol 500 mg up to 4 times a day for headache. You will need Zio patch monitoring upon discharge, coordinate with your PCP office or neurology office to set up the test. Continue aspirin and Plavix 18 more days. Then continue with Plavix only. Drop aspirin. While on Plavix, avoid omeprazole. You underwent EEG, it has not been read yet, follow-up with your primary care office or neurology office on the final results of the test. Given h/o stroke and diabetes, you might benefit from modifying your diabetic medications [incorporation of either SGLT2 inhibitor or GLP-1 RA]. Defer this decision to your primary care office. Discuss with your primary care office when you visit in a week time upon discharge. Because your blood pressure were on the higher side while in hospital, hydrochlorothiazide small dose has been added. Continue to measure your blood pressure twice a day, maintain a log, take it to your primary care physician for further evaluation/management of your blood pressure. Please make sure that you are able to get your medications today by calling your pharmacy before you leave the hospital so that your treatment continuity is not broken. Pending Studies at Discharge: No Stand-Alone Forms: My [facility] [place] [employer], Smoking Cessation, Medications to Prevent Stroke Medications and DC Order Prescriptions: New clopidogrel 75 mg Tablet 75 mg PO QAM Qty: 30 0RF levetiracetam 500 mg tablet 500 mg PO BID Qty: 60 0RF hydrochlorothiazide 25 mg Tablet 12.5 mg PO QAM Qty: 15 0RF Continued atorvastatin 40 mg tablet 40 mg PO DAILY lisinopril 20 mg tablet 20 mg PO QAM metoprolol tartrate 25 mg tablet 25 mg PO BID Janumet 50-1,000 mg tablet 1 tab PO BID azelastine-fluticasone 137-50 mcg/spray spray,non-aerosol 1 spray INTRANASAL DAILY Rx Instructions: 1 spray each nostril daily prednisolone acetate 1 % drops,suspension 1 drp OPB DAILY Poli Giraldo U-300 Insulin 300 unit/mL (1.5 mL) insulin pen 10 unit SUBCUT QPM ferrous sulfate [iron] 325 mg (65 mg iron) Tablet 325 mg PO DAILY cholecalciferol (vitamin D3) [Vitamin D3] 25 mcg (1,000 unit) Tablet 25 mcg PO DAILY Systane (PF) 0.4-0.3 % Dropperette 1 drp OPHTHALMIC (EYE) BID PRN (Reason: as directed) aspirin 81 mg Tablet,Delayed Release (Dr/Ec) 81 mg PO QAM 18 Days Qty: 18 0RF Discharge Orders: Discharge Order (Routine); Ordered 08/16/23 Ordered By: Dacia Pack/Other Patient Handouts: Managing Type 2 Diabetes Admission Data Admit Date/Time: 08/13/23 17:54 Attending Provider: Dacia Simmons Admit Provider: Uli Bryant Primary Care Provider: Ang Pickard Other Providers: Roxana Rowe; Drake Dai; Roxana Adkins; Kody Skaggs; Alok Merrill; Bennie Montanez; Tye Allen; Liz Herrera; Oscar Eisenberg; Gume Morelos; Sherman Norwood; Cornelio Guerra; Dona Selby; Yolande Tam; Tye Bee; Uli Bryant
--- NOTE | 2023-08-16 20:32 | Electrocardiogram Report ---
Test Reason : Blood Pressure : / mmHG Vent. Rate : 061 BPM Atrial Rate : 061 BPM P-R Int : 176 ms QRS Dur : 066 ms QT Int : 412 ms P-R-T Axes : 024 023 044 degrees QTc Int : 414 ms Sinus rhythm with Premature atrial complexes Otherwise normal ECG When compared with ECG of 14-AUG-2023 05:21, No significant change was found Confirmed by Guillaume Gamboa ([id number]) on 08/16/2023 8:31:55 PM Referred By: REFERRED SELF Confirmed By:Guillaume Gamboa
--- NOTE | 2023-08-17 06:24 | Electroencephalogram ---
EEG Procedure Note Date of Service August 14, 2023 Start / End Times Start Time: 13:46 End Time: 14:[address] Troy Pederson History A 73 year old male with recurrent slurred speech. EEG performed for evaluation of epileptiform activity. Home Medication List Medication Instructions Recorded Confirmed Type atorvastatin 40 mg tablet 40 mg PO DAILY 08/13/23 08/13/23 History azelastine 137 mcg-fluticasone 50 1 spray intranasal DAILY 08/13/23 08/13/23 History mcg/spray nasal spray cholecalciferol (vitamin D3) 25 25 mcg PO DAILY 08/13/23 08/13/23 History mcg (1,000 unit) tablet (Vitamin D3) ferrous sulfate 325 mg (65 mg 325 mg PO DAILY 08/13/23 08/13/23 History iron) tablet (iron) insulin glargine U-300 conc 300 10 unit subcut QPM 08/13/23 08/13/23 History unit/mL (1.5 mL) subcutaneous pen (TouSpiderOako SoloStar U-300 Insulin) lisinopril 20 mg tablet 20 mg PO QAM 08/13/23 08/13/23 History metoprolol tartrate 25 mg tablet 25 mg PO BID 08/13/23 08/13/23 History peg 400-propylene glycol (PF) 0.4 1 drp ophthalmic (eye) BID PRN as 08/13/23 08/13/23 History %-0.3 % eye drops in a dropperette directed (Systane (PF)) prednisolone acetate 1 % eye 1 drp OPB DAILY 08/13/23 08/13/23 History drops,suspension sitagliptin phosphate 50 1 tab PO BID 08/13/23 08/13/23 History mg-metformin 1,000 mg tablet (Janumet) aspirin 81 mg tablet,delayed 81 mg PO QAM 18 days #18 tabs 08/16/23 08/13/23 Rx release clopidogrel 75 mg tablet 75 mg PO QAM #30 tabs 08/16/23 Rx hydrochlorothiazide 25 mg tablet 12.5 mg (1/2 x 25 mg) PO QAM #15 08/16/23 Rx tabs levetiracetam 500 mg tablet 500 mg PO BID #60 tabs 08/16/23 Rx Inpatient Medication List Discontinued Medications Acetaminophen (Acetaminophen 325 Mg Tab) 650 mg PO Q4H PRN PRN Reason: Pain or Fever Stop: 09/12/23 19:34 Last Admin: 08/14/23 13:30 Dose: 650 mg Documented By: Admin: 08/14/23 05:35 Dose: 650 mg Documented By: ADRIANE Acetaminophen (Acetaminophen 325 Mg Tab) 650 mg PO NOW STA Stop: 08/14/23 05:31 Last Admin: 08/14/23 05:45 Dose: Not Given Documented By: ADRIANE Acetaminophen (Acetaminophen 325 Mg Tab) 650 mg PO Q6 ERNESTO Stop: 09/14/23 00:00 Last Admin: 08/16/23 12:19 Dose: 650 mg Documented By: Admin: 08/16/23 05:59 Dose: 650 mg Documented By: Admin: 08/15/23 23:56 Dose: 650 mg Documented By: Admin: 08/15/23 17:34 Dose: Not Given Documented By: Admin: 08/15/23 12:37 Dose: 650 mg Documented By: Admin: 08/15/23 05:14 Dose: 650 mg Documented By: Admin: 08/14/23 23:48 Dose: 650 mg Documented By: EVAN Acetaminophen (Acetaminophen 325 Mg Tab) 650 mg PO ONE ONE Stop: 08/14/23 19:01 Last Admin: 08/14/23 19:24 Dose: 650 mg Documented By: EVAN Aspirin (Aspirin 81 Mg Ectab) [facility] [place] Stop: 09/13/23 08:59 Last Admin: 08/16/23 07:38 Dose: 81 mg Documented By: Admin: 08/15/23 08:36 Dose: 81 mg Documented By: Admin: 08/14/23 09:10 Dose: 81 mg Documented By: Atorvastatin Calcium (Atorvastatin 40 Mg Tab) 40 mg PO DAILY [facility] Stop: 09/12/23 19:34 Last Admin: 08/16/23 07:38 Dose: 40 mg Documented By: Admin: 08/15/23 08:36 Dose: 40 mg Documented By: Admin: 08/14/23 09:06 Dose: 40 mg Documented By: Admin: 08/13/23 21:23 Dose: 40 mg Documented By: EVAN Clopidogrel Bisulfate (Clopidogrel Bisulfate 75 Mg Tab) 75 mg PO QAM ERNESTO Stop: 09/13/23 09:59 Last Admin: 08/16/23 07:38 Dose: 75 mg Documented By: Admin: 08/15/23 08:36 Dose: 75 mg Documented By: Admin: 08/14/23 11:50 Dose: 75 mg Documented By: Clopidogrel Bisulfate (Clopidogrel Bisulfate 300 Mg Tab) 300 mg PO NOW STA Stop: 08/14/23 23:17 Last Admin: 08/14/23 23:43 Dose: 300 mg Documented By: EVAN Ferrous Sulfate (Ferrous Sulfate 325 Mg Tab) 325 mg PO DAILY ERNESTO Stop: 09/13/23 08:59 Last Admin: 08/16/23 07:37 Dose: 325 mg Documented By: Admin: 08/15/23 08:36 Dose: 325 mg Documented By: Admin: 08/14/23 09:09 Dose: 325 mg Documented By: Fluticasone Propionate (Fluticasone Propionate Na Spr 16 Gm Btl) 1 sprays LIZBETH DAILY ERNESTO Stop: 09/14/23 08:59 Last Admin: 08/16/23 07:39 Dose: 1 sprays Documented By: Admin: 08/15/23 08:37 Dose: 1 sprays Documented By: ROSE Hydralazine HCl (Hydralazine Hcl 20 Mg/Ml Vial) 5 mg IV NOW ONE Stop: 08/14/23 06:34 Last Admin: 08/14/23 06:45 Dose: 5 mg Documented By: EVAN Hydrochlorothiazide (Hydrochlorothiazide 25 Mg Tab) 12.5 mg PO QAM ERNESTO Stop: 09/15/23 12:14 Last Admin: 08/16/23 13:37 Dose: 12.5 mg Documented By: Sodium Chloride (Nss) 500 mls @ 999 mls/hr IV .Q31M ONE Stop: 08/13/23 15:23 Last Infusion: 08/13/23 15:35 Dose: Infused Documented By: Admin: 08/13/23 15:00 Dose: 999 mls/hr Documented By: JEROMY Magnesium Sulfate/Dextrose (Magnesium Sulfate / D5w) 1 gm in 100 mls @ 200 mls/hr IV Q30M ERNESTO Stop: 08/13/23 19:41 Last Infusion: 08/14/23 00:11 Dose: Infused Documented By: Admin: 08/13/23 22:40 Dose: 200 mls/hr Documented By: Infusion: 08/13/23 22:35 Dose: Infused Documented By: Admin: 08/13/23 22:05 Dose: 200 mls/hr Documented By: LMP Sodium Chloride (Nss) 1,000 mls @ 50 mls/hr IV .Q20H ONE Stop: 08/15/23 01:30 Last Infusion: 08/14/23 18:43 Dose: Infused Documented By: Admin: 08/14/23 06:00 Dose: 80 mls/hr Documented By: ADRIANE Magnesium Sulfate/Dextrose (Magnesium Sulfate / D5w) 1 gm in 100 mls @ 50 mls/hr IV ONE ONE Stop: 08/14/23 08:31 Last Infusion: 08/14/23 08:57 Dose: Infused Documented By: Admin: 08/14/23 06:47 Dose: 50 mls/hr Documented By: EVAN Magnesium Sulfate/Dextrose (Magnesium Sulfate / D5w) 1 gm in 100 mls @ 50 mls/hr IV ONE ONE Stop: 08/14/23 21:49 Last Infusion: 08/14/23 23:20 Dose: Infused Documented By: Admin: 08/14/23 21:06 Dose: 50 mls/hr Documented By: LMP Potassium Chloride (K Gonzalo / Wtr) 10 meq in 100 mls @ 100 mls/hr IV Q1H ERNESTO Stop: 08/14/23 22:29 Last Infusion: 08/14/23 23:21 Dose: Infused Documented By: Admin: 08/14/23 22:03 Dose: 100 mls/hr Documented By: Infusion: 08/14/23 22:03 Dose: Infused Documented By: Admin: 08/14/23 21:06 Dose: 100 mls/hr Documented By: LMP Lactated Ringer's (Lr) 1,000 mls @ 60 mls/hr IV .[id number] ONE Stop: 08/15/23 17:39 Last Infusion: 08/15/23 17:09 Dose: Infused Documented By: Admin: 08/15/23 00:04 Dose: 60 mls/hr Documented By: LMP Levetiracetam 750 mg/ Sodium (Chloride) 107.5 mls @ 440 mls/hr IV ONE ONE Stop: 08/14/23 23:59 Last Infusion: 08/15/23 00:06 Dose: Infused Documented By: Admin: 08/14/23 23:43 Dose: 440 mls/hr Documented By: EVAN Magnesium Sulfate/Dextrose (Magnesium Sulfate / D5w) 1 gm in 100 mls @ 50 mls/hr IV Q2H ERNESTO Stop: 08/16/23 12:44 Last Infusion: 08/16/23 14:23 Dose: Infused Documented By: Admin: 08/16/23 12:17 Dose: 50 mls/hr Documented By: Infusion: 08/16/23 12:17 Dose: Infused Documented By: Admin: 08/16/23 10:22 Dose: 50 mls/hr Documented By: Insulin Aspart (Insulin Aspart Per Unit Charge) 0 units SC ACHS [facility]; Protocol Stop: 09/12/23 20:59 Last Admin: 08/16/23 12:28 Dose: 7 units Documented By: Co-signed By: PAULA Admin: 08/16/23 08:32 Dose: 4 units Documented By: Co-signed By: IVAN Admin: 08/15/23 20:36 Dose: Not Given Documented By: Admin: 08/15/23 17:33 Dose: 4 units Documented By: LONI Co-signed By: TANYA Admin: 08/15/23 12:04 Dose: 5 units Documented By: ROSE Co-signed By: TANYA Admin: 08/15/23 08:10 Dose: Not Given Documented By: Admin: 08/14/23 21:57 Dose: Not Given Documented By: Admin: 08/14/23 18:14 Dose: Not Given Documented By: Admin: 08/14/23 13:38 Dose: 6 units Documented By: Co-signed By: ALEX Admin: 08/14/23 09:21 Dose: Not Given Documented By: Admin: 08/13/23 21:36 Dose: 3 units Documented By: EVAN Co-signed By: [facility] Insulin Aspart (Insulin Aspart Per Unit Charge) 0 units SC 0200 ONE Stop: 08/14/23 02:01 Last Admin: 08/14/23 01:38 Dose: Not Given Documented By: EVAN Insulin Glargine (Lantus Per Unit Charge) 8 units SQ QPM ERNESTO Stop: 09/12/23 20:59 Last Admin: 08/14/23 21:58 Dose: Not Given Documented By: Admin: 08/13/23 21:35 Dose: 8 units Documented By: EVAN Co-signed By: ADRIANE Ioversol (Optiray 320 125ml) 115 ml IV ONCE ONE Stop: 08/13/23 21:52 Last Admin: 08/13/23 21:51 Dose: 115 ml Documented By: JAMILAH Ioversol (Optiray 320 125ml) 116 ml IV ONCE ONE Stop: 08/14/23 20:13 Last Admin: 08/14/23 20:16 Dose: 116 ml Documented By: JAMILAH Levetiracetam (Levetiracetam Soln 500 Mg/5 Ml Udp) 500 mg PO Q12H ERNESTO Stop: 09/15/23 08:59 Last Admin: 08/16/23 10:22 Dose: 500 mg Documented By: Lisinopril (Lisinopril 20 Mg Tab) 20 mg PO QAM ERNESTO Stop: 09/13/23 08:59 Last Admin: 08/16/23 07:37 Dose: 20 mg Documented By: Admin: 08/15/23 08:36 Dose: 20 mg Documented By: Admin: 08/14/23 09:10 Dose: 20 mg Documented By: Metoprolol Tartrate (Metoprolol Tartrate 25 Mg Tab) 25 mg PO BID ERNESTO Stop: 09/12/23 20:59 Last Admin: 08/16/23 08:31 Dose: 25 mg Documented By: Admin: 08/15/23 20:40 Dose: 25 mg Documented By: Admin: 08/15/23 08:35 Dose: 25 mg Documented By: Admin: 08/14/23 21:17 Dose: 25 mg Documented By: Admin: 08/14/23 09:07 Dose: 25 mg Documented By: Admin: 08/13/23 21:23 Dose: 25 mg Documented By: EVAN Miscellaneous (Azelastine-Fluticasone Crooks -Order Awaiting Action) 1 each N/A QS ERNESTO Stop: 09/13/23 07:59 Last Admin: 08/14/23 09:03 Dose: Not Given Documented By: Miscellaneous Information (Stroke Patient Discharge) 1 each N/A NOW STA Stop: 08/16/23 12:25 Last Admin: 08/16/23 13:33 Dose: 1 each Documented By: Ondansetron HCl (Ondansetron Inj 2 Mg/Ml 2 Ml Vial) 4 mg IV Q6H PRN PRN Reason: Nausea And Vomiting Stop: 09/13/23 08:09 Last Admin: 08/14/23 09:04 Dose: 4 mg Documented By: Prednisolone Acetate (Prednisolone Acetate 1% Op Susp 5 Ml Btl) 1 drops OPB DAILY ERNESTO Stop: 09/13/23 08:59 Last Admin: 08/16/23 07:40 Dose: 1 drops Documented By: Admin: 08/15/23 08:39 Dose: 1 drops Documented By: Admin: 08/14/23 09:14 Dose: 1 drops Documented By: Vitamin D (Cholecalciferol 1,000 Units 25 Mcg Tab) 25 units PO DAILY ERNESTO Stop: 09/13/23 08:59 Last Admin: 08/14/23 21:54 Dose: Not Given Documented By: EVAN Vitamin D (Cholecalciferol 1,000 Units 25 Mcg Tab) 1,000 units PO DAILY ERNESTO Stop: 09/13/23 08:59 Last Admin: 08/16/23 07:36 Dose: 1,000 units Documented By: Admin: 08/15/23 08:36 Dose: 1,000 units Documented By: Admin: 08/14/23 09:11 Dose: 1,000 units Documented By: Description This is a 21 electrode EEG with a single channel dedicated to limited EKG. The electrodes were placed in accordance with the International 10-20 system. REPORT: At the onset of the EEG the patient is awake. The background is symmetric and continuous. The posterior dominant rhythm is 7.5-8 Hz. There is low amplitude mixed faster frequencies in the frontal head regions. No stage II sleep transients are seen. Photic stimulation is performed and does not induce any abnnormalities. 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 No epileptiform activity is seen.
== END 2023-08-16 14:47 | disposition home or self-care (01) | DRG 69 ==
LOC: ED 14:26 → 2S 17:54 → SUATTDRO 17:54 → 2S 19:19